=== PATIENT | male | born 1950 | race Caucasian/White ===

== ENCOUNTER 2016-06-28 07:32 | Emergency (ER) | payer OTHER ==
[2016-06-28 07:39] VITALS: BP 154/93; TEMP 96.9; BMI 31.4
[2016-06-28 08:08] LABS: BILIRUBIN,URINE Negative (NEGATIVE); KETONES,URINE Negative (NEGATIVE); LEUKOCYTE ESTERASE ,URINE Negative (NEGATIVE); NITRITE,URINE Negative (NEGATIVE); PROTEIN,URINE Negative (NEGATIVE); URINE, BLOOD Negative (NEGATIVE)
[2016-06-28 08:27] LABS: BASOPHILS # (AUTO) 0.1 K/uL (0-0.2); EOSINOPHILS # (AUTO) 0.2 K/ul (0.0-0.7); EOSINOPHILS % (AUTO) 4.3 % (0.0-7.0); HEMOGLOBIN 16.9 g/dl (14.0-18.0); IMMATURE GRANULOCYTE % (AUTO) 0.2 % (0.0-5.0); LYMPHOCYTES # (AUTO) 1.9 K/uL (0.60-3.4); LYMPHOCYTES % (AUTO) 38.7 (10.0-50.0); MEAN CORPUSCULAR HEMOGLOBIN 29.8 pg (27.0-31.0); MEAN CORPUSCULAR HGB CONC 32.5 (31.8-35.4); MEAN CORPUSCULAR VOLUME 91.5 fl (80.0-94.0); MONOCYTES # (AUTO) 0.7 K/uL (0.4-2.0); NEUTROPHILS % (AUTO) 41.8; PLATELET COUNT 210 10^3/uL (140-440); RED BLOOD COUNT 5.68 10^6/ul (4.70-6.10); WHITE BLOOD COUNT 4.86 K/ul (4.2-10.2)
[2016-06-28 08:32] LABS: ADD URINE MICROSCOPIC NO
--- NOTE | 2016-06-28 08:32 | CT ---
EXAM: CT of the lumbar spine without contrast History: Lower back pain and diskitis. Comparison: CT lumbar spine 02/07/2015 Technique: Multiplanar CT images through the lumbar spine were obtained without the administration of IV contrast Findings: Atherosclerotic vascular calcifications. Small hiatal hernia. Left renal cyst again not ed. No acute fracture or subluxation. No change in the multilevel degenerative disc space narrowing wit h endplate sclerosis, osteophyte formation and scattered endplate cysts. Degenerative disc disease is most significant and moderate to severe at L5-S1, T12-L1 and L1-L2. T12-L1: The bony spinal canal is not compromised and there is no significant bony neural foraminal narrowing. L1-L2: Bony spinal canal is not compromised and there is moderate left mild right bony neural erick inal narrowing secondary to ligamentous and facet hypertrophy. L2-L3: Small disc bulge effacing the anterior thecal sac with no significant bony central canal jatinder nosis. Mild to moderate bilateral bony neural foraminal narrowing. L3-L4: Small disc bulge with no significant bony central canal stenosis. Moderate bilateral bony n eural foraminal narrowing secondary to ligamentous and facet hypertrophy. L4-L5: No significant disc bulge or bony central canal stenosis. Moderate to severe right and mild to moderate left bony neural foraminal narrowing secondary to ligamentous and facet hypertrophy. L5-S1: Small disc bulge with no significant bony central canal stenosis. Severe right and mild lef t bony neural foraminal narrowing secondary to ligamentous and facet hypertrophy. Findings have not significantly changed compared to the prior study Impression: 1. No acute osseous abnormality of the lumbar spine. 2. Degenerative changes with level by level analysis as detailed above. 3. CT is insensitive for the detection of diskitis. If there remains concern for diskitis an MRI o f the lumbar spine would be a better examination to evaluate.
[2016-06-28 08:44] LABS: ALBUMIN 3.6 g/dL (3.4-5.0); ALBUMIN/GLOBULIN RATIO 1.03; BILIRUBIN,TOTAL 0.68 mg/dL (0.00-1.20); BUN/CREATININE RATIO 11.25; CALCIUM 9.3 mg/dL (8.2-10.2); CREATININE 0.8 mg/dL (0.60-1.10); TOTAL PROTEIN 7.1 g/dL (5.8-8.1)
--- NOTE | 2016-06-28 08:46 | ED.PDOC ---
General ED Provider: Dr. DILLAN SCANLON Chief Complaint: Back Pain Stated Complaint: Patient reports a 3 day history of lower back pain in area of previous surgery. He has been taking Asprin only. He states he had a UTI 4 months ago for which he was treated and now has no symtoms. Time Seen by Physician: 08:00 Mode of Arrival: Walk-In Information Source: Patient Exam Limitations: No limitations Primary Care Provider: LUKAS STARR Nursing and Triage Documentation Reviewed and Agree: Yes Musculoskeletal Complaint Exam - Back Pain Complaint/Exam Mechanism of Injury: Reports: No known trauma Onset/Duration: 3 days Symptoms Are: Still present Timing: Constant Initial Severity: Severe Current Severity: Moderate Location: Reports: Discrete (Lower back ) Character: Reports: Aching, Throbbing Aggravating: Reports: Movements, Bending, Walking Alleviating: Reports: Rest, Position Associated Signs and Symptoms: Reports: Tingling, Pain with weight bearing. Denies: Weight loss Related History: Reports: Similar episode TAD Risk Factors: Reports: None AAA Risk Factors: Reports: None Cauda Equina Risk Factors: Reports: None Epidural Abcess Risk Factors: Denies: Fever, IV drug use, Recent dental procedure, Lower extremity numbness, Lower extremity weakness Related Surgical History: Reports: Back Surgery Focal Tenderness: Yes Paraspinal Muscle Tenderness: Yes Paraspinal Muscle Spasm: No Scoliosis: No Lordosis: No Kyphosis: No SLR Test: Right Negative, Left Negative Hip Motion Testing Pain: Right Negative, Left Negative Focal Weakness: Present: None Focal Sensory Loss: Present: None Gait: Present: Normal Back Picture: 1 - tenderness to palpation. Differential Diagnoses: Herniated Disk, Strain, Sprain Review of Systems - Review Of Systems Constitutional: Reports: No symptoms Eyes: Reports: No symptoms Ears, Nose, Mouth, Throat: Reports: No symptoms Respiratory: Reports: No symptoms Cardiac: Reports: No symptoms GI: Reports: No symptoms : Reports: No symptoms Musculoskeletal: Reports: Back pain Skin: Reports: No symptoms Neurological: Reports: No symptoms Endocrine: Reports: No symptoms Hematologic/Lymphatic: Reports: No symptoms All Other Systems: Reviewed and Negative Past Medical History - Past Medical History Previously Healthy: No Endocrine: Reports: None Cardiovascular: Reports: None Respiratory: Reports: COPD Hematological: Reports: None Gastrointestinal: Reports: None Genitourinary: Reports: UTI, Other Neuro/Psych: Reports: Other (spinal stenosis) Musculoskeletal: Reports: Arthritis, Back Pain Cancer: Reports: None Other Pertinent Past Medical History: urinary retention/uti,Back, Left Knee, Hernia Repair - Surgical History General Surgical History: Reports: Orthopedic (Back, Left Knee), Other (Hernia Repair) - Family History Family History: Reports: Unknown - Social History Smoking Status: Current some day smoker, Light tobacco smoker Hx Substance Use: No Alcohol Screening: None - Immunizations Tetanus Shot up to Date: No Physical Exam - Physical Exam Appearance: Ill-appearing Ill-appearing: Mild Pain Distress: Moderate Neck: Supple Respiratory: Airway patent, Breath sounds clear, Breath sounds equal, Respirations nonlabored Cardiovascular: RRR, Pulses normal, No rub, No murmur GI/: Soft, Nontender, No masses, Bowel sounds normal, No Organomegaly Musculoskeletal: Limited ROM (of lower back. ) Skin: Warm, Dry, Normal color Psychiatric: Anxious Interpretation - Radiology Interpretation Radiology Interpretation By: Radiologist Radiology Results: Negative Exam Interpreted: CT Scan (No Acute fracture no abscess. ) Critical Care Note - Critical Care Note Total Time (mins): 0 Course - Course Hematology/Chemistry: 06/28/16 08:20 06/28/16 08:20 Orders, Labs, Meds: Lab Review 06/28/16 06/28/16 07:53 08:20 WBC 4.86 RBC 5.68 Hgb 16.9 Hct 52.0 MCV 91.5 MCH 29.8 MCHC 32.5 RDW Coeff of Jessie 13.5 Plt Count 210 Immature Gran % (Auto) 0.2 Neut % (Auto) 41.8 Lymph % (Auto) 38.7 [place] % (Auto) 14.0 H Eos % (Auto) 4.3 Baso % (Auto) 1.0 Immature Gran # (Auto) 0.0 Neut # 2.0 Lymph # 1.9 Estill # 0.7 Eos # 0.2 Baso # 0.1 ESR Pending Sodium 144 Potassium 4.0 Chloride 106 Carbon Dioxide 26 Anion Gap 16.0 BUN 9 Creatinine 0.80 Estimated GFR (MDRD) 96.00 BUN/Creatinine Ratio 11.25 Glucose 94 Calcium 9.3 Total Bilirubin 0.68 AST 22 ALT 14 Alkaline Phosphatase 102 Total Protein 7.1 Albumin 3.6 Globulin 3.5 Albumin/Globulin Ratio 1.03 Urine Color Yellow Urine Clarity Clear Urine pH 7.0 Ur Specific Rudyard 1.020 Urine Protein Negative Urine Glucose (UA) Negative Urine Ketones Negative Urine Blood Negative Urine Nitrite Negative Urine Bilirubin Negative Urine Urobilinogen 1.0 Ur Leukocyte Esterase Negative Orders Category Date Time Status CBC W/ AUTO DIFF Stat LAB 06/28/16 08:20 Results CMP [COMPREHENSIVE METABOLIC PANEL] Stat LAB 06/28/16 08:20 Completed ESR Stat LAB 06/28/16 08:20 Results URINALYSIS C & S IF INDICATED Stat LAB 06/28/16 07:[address] LUMBAR SPINE W/O CONTRAST Stat RADS 06/28/16 07:56 Completed Vital Signs: Temp Pulse Resp BP Pulse Ox 06/28/16 07:33 96.9 F L 84 16 154/93 H 95 Departure - Departure Time of Disposition: 09:27 Disposition: HOME SELF-CARE Discharge Problem: Backache Instructions: Back Pain (ED) Condition: Fair Pt referred to PMD for follow-up: Yes Additional Instructions: If you take Ibuprofen do not take Aspirin that day Take Tramdol as needed for severe pain. Follow up with PCP return if worse. Prescriptions: Ibuprofen 600 mg PO TID PRN #20 tablet PRN Reason: pain Tramadol HCl [Ultram] 50 mg PO Q8H PRN #10 tablet PRN Reason: Severe Pain Allergies/Adverse Reactions: Allergies Penicillins Adverse Reaction (Verified 06/28/16 07:41) Home Medications: Ambulatory Orders Aspirin [Neida Advanced] 500 mg PO PRN 05/22/16 Ibuprofen 600 mg PO TID PRN #20 tablet 06/28/16 Tramadol HCl [Ultram] 50 mg PO Q8H PRN #10 tablet 06/28/16 Disposition Discussed With: Patient
[2016-06-28 09:16] LABS: ERYTHROCYTE SEDIMENTATION RATE 9 mm/hr (0-15); ESR INTERNAL QC INTERNAL QC VALID
[2016-06-28] MEDS ORDERED: TORADOL IM STA (09:16)
== END 2016-06-28 09:43 | disposition home or self-care (01) ==
LOC: ED 07:32
DX: M54.5 Low back pain (principal); F17.210 Nicotine dependence, cigarettes, uncomplicated; Z87.440 Personal history of urinary (tract) infections; Z79.899 Other long term (current) drug therapy
CPT/HCPCS: 36415; 80053; 81001; 85025; 85651; 96372; 99282; 99283

== ENCOUNTER 2016-06-28 16:20 | Outpatient (CLI) ==
[2012-11-30 13:15] VITALS: TEMP 99.2
[2016-06-28 07:39] VITALS: BMI 31.4
== END 2016-06-28 16:21 | disposition home or self-care (01) ==
LOC: AMBL 16:20
PROVIDERS: ATTEND Internal Medicine Geriatric Medicine
DX: R42 Dizziness and giddiness (principal); R61 Generalized hyperhidrosis

== ENCOUNTER 2016-08-28 08:56 | Emergency (ER) | payer OTHER ==
[2016-08-28 09:01] VITALS: BP 153/81; TEMP 96.8; BMI 27.1
--- NOTE | 2016-08-28 09:35 | ED.PDOC ---
General ED Provider: Dr. AUDI RODRIGUEZ JR Chief Complaint: Respiratory Complaint Stated Complaint: patient c/o coughing and sneezing. c/o nasal congestion.[ End ]STATES HE HAS BEEN ABLE TO BREATHE BETTER FOR THE LAST 5 DAYS SINCE HE QUIT SMOKING[ End ]96.8 77 16 96% 153/81 03/17 states depressed that he is unable to get help locally, thinking of moving to [place] to be near brother and sister , discussed follow up has missed pain management this month was unhappy with not getting potassium from PMD "it made me feel better" Time Seen by Physician: 09:34 Mode of Arrival: Walk-In Information Source: Patient Exam Limitations: No limitations Primary Care Provider: JOIE SORTO Nursing and Triage Documentation Reviewed and Agree: No Review of Systems - Review Of Systems Constitutional: Reports: Chills, Malaise Eyes: Reports: No symptoms Ears, Nose, Mouth, Throat: Reports: Nose discharge (SNEEZING) Respiratory: Reports: Cough Cardiac: Reports: No symptoms GI: Reports: No symptoms : Reports: No symptoms Musculoskeletal: Reports: Back pain, Muscle pain Skin: Reports: No symptoms Neurological: Reports: No symptoms Endocrine: Reports: No symptoms Hematologic/Lymphatic: Reports: No symptoms All Other Systems: Other Past Medical History - Past Medical History Previously Healthy: No Endocrine: Reports: None Cardiovascular: Reports: None, CHF Respiratory: Reports: COPD Hematological: Reports: None Gastrointestinal: Reports: None Genitourinary: Reports: UTI, Other (urinary retention) Neuro/Psych: Reports: Other (spinal stenosis) Musculoskeletal: Reports: Arthritis, Back Pain Cancer: Reports: None - Surgical History General Surgical History: Reports: Orthopedic (Back, Left Knee), Hernia Repair, Other (Hernia Repair) - Family History Family History: Reports: Unknown - Social History Smoking Status: Current some day smoker, Light tobacco smoker Hx Substance Use: No Alcohol Screening: None Physical Exam - Physical Exam Appearance: Well-appearing Ill-appearing: Mild Pain Distress: Mild Eyes: ERNESTO, EOMI, Conjunctiva clear ENT: Ears normal, Nose normal, Oropharynx normal Neck: Supple Respiratory: Airway patent, Breath sounds clear, Breath sounds equal, Respirations nonlabored Cardiovascular: RRR, Pulses normal, No rub, No murmur GI/: Soft, Nontender, No masses, Bowel sounds normal, No Organomegaly Musculoskeletal: Normal strength, ROM intact, No edema, No calf tenderness Skin: Warm, Dry, Normal color Neurological: Sensation intact, Motor intact, Reflexes intact, Cranial nerves intact, Alert, Oriented Psychiatric: Affect appropriate, Mood appropriate Critical Care Note - Critical Care Note Total Time (mins): 0 Course - Course Vital Signs: Temp Pulse Resp BP Pulse Ox 08/28/16 08:57 96.8 F L 77 16 153/81 H 96 Departure - Departure Time of Disposition: 09:59 Disposition: HOME SELF-CARE Discharge Problem: Rhinitis, Back pain Instructions: Allergic Rhinitis (ED), Chronic Back Pain (ED) Condition: Fair Pt referred to PMD for follow-up: Yes Additional Instructions: may begin medrol dose pack recommend antihistamine decongestant every day for 5-7 days(such as claritin D) follow up with main management for back pain follow up with PMD for history of hypokalemia recheck potassium 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 may call [facility] for referral Prescriptions: Loratadine/Pseudoephedrine [Claritin-D 12 Hour Tablet] 1 each PO BID PRN #60 tab.er.12h PRN Reason: Allergy Symptoms Methylprednisolone [Medrol Dosepak] 4 mg PO DIRECTED #1 pkg Potassium Chloride [K-Dur] 20 meq PO DAILY #14 tab Allergies/Adverse Reactions: Allergies Penicillins Adverse Reaction (Verified 08/28/16 09:01) Home Medications: Ambulatory Orders Aspirin [Neida Advanced] 500 mg PO PRN 05/22/16 Ibuprofen 600 mg PO TID PRN #20 tablet 06/28/16 Tramadol HCl [Ultram] 50 mg PO Q8H PRN #10 tablet 06/28/16 Loratadine/Pseudoephedrine [Claritin-D 12 Hour Tablet] 1 each PO BID PRN #60 tab.er.12h 08/28/16 Methylprednisolone [Medrol Dosepak] 4 mg PO DIRECTED #1 pkg 08/28/16 Potassium Chloride [K-Dur] 20 meq PO DAILY #14 tab 08/28/16
== END 2016-08-28 10:35 | disposition home or self-care (01) ==
LOC: ED 08:56
DX: J30.9 Allergic rhinitis, unspecified (principal); M54.9 Dorsalgia, unspecified; G89.29 Other chronic pain; E87.6 Hypokalemia; Z79.899 Other long term (current) drug therapy
CPT/HCPCS: 99283

== ENCOUNTER 2016-09-18 14:57 | Emergency (ER) | payer OTHER ==
[2016-09-18 15:08] VITALS: BP 104/70; TEMP 98.5; BMI 25.4
--- NOTE | 2016-09-18 15:22 | ED.PDOC ---
General ED Provider: Dr. FLAVIO FAULKNER Chief Complaint: Back Pain Stated Complaint: low back pain Time Seen by Physician: 15:00 (negatibe injury) Mode of Arrival: Walk-In Information Source: Patient Exam Limitations: No limitations Primary Care Provider: JOIE SORTO Nursing and Triage Documentation Reviewed and Agree: Yes Musculoskeletal Complaint Exam - Back Pain Complaint/Exam Mechanism of Injury: Reports: No known trauma Onset/Duration: 1 day Symptoms Are: Still present Timing: Constant Episodes Lasting: Hours Initial Severity: Moderate Current Severity: Moderate Location: Reports: Discrete Character: Reports: Aching Aggravating: Reports: None Alleviating: Reports: None Associated Signs and Symptoms: Denies: Swelling, Redness, Bruising, Fever, Weakness, Numbness, Tingling, Abdominal pain, Flank pain, Bladder incontinence, Bowel incontinence, Weight loss, Pain with weight bearing Related History: Reports: Similar episode TAD Risk Factors: Reports: None AAA Risk Factors: Reports: None Cauda Equina Risk Factors: Reports: None Epidural Abcess Risk Factors: Reports: None Focal Tenderness: No Paraspinal Muscle Tenderness: No Paraspinal Muscle Spasm: No Scoliosis: No Lordosis: No Kyphosis: No SLR Test: Right Negative, Left Negative Hip Motion Testing Pain: Right Negative, Left Negative Focal Weakness: Present: None Focal Sensory Loss: Present: None Differential Diagnoses: Strain, Sprain Review of Systems - Review Of Systems Constitutional: Reports: No symptoms Eyes: Reports: No symptoms Ears, Nose, Mouth, Throat: Reports: No symptoms Respiratory: Reports: No symptoms Cardiac: Reports: No symptoms GI: Reports: No symptoms : Reports: No symptoms Musculoskeletal: Reports: Back pain Skin: Reports: No symptoms Neurological: Reports: No symptoms Endocrine: Reports: No symptoms Hematologic/Lymphatic: Reports: No symptoms All Other Systems: Reviewed and Negative Past Medical History - Past Medical History Previously Healthy: No Endocrine: Reports: None Cardiovascular: Reports: None, CHF Respiratory: Reports: COPD Hematological: Reports: None Gastrointestinal: Reports: None Genitourinary: Reports: UTI, Other (urinary retention) Neuro/Psych: Reports: Other (spinal stenosis) Musculoskeletal: Reports: Arthritis, Back Pain Cancer: Reports: None Other Pertinent Past Medical History: /uti,Back, Left Knee, Hernia Repair - Surgical History General Surgical History: Reports: Orthopedic (Back, Left Knee), Hernia Repair, Other (Hernia Repair) - Family History Family History: Reports: Unknown - Social History Smoking Status: Current some day smoker, Light tobacco smoker Hx Substance Use: No Alcohol Screening: None Physical Exam - Physical Exam Appearance: Well-appearing, No pain distress, Well-nourished Eyes: ERNESTO, EOMI, Conjunctiva clear ENT: Ears normal, Nose normal, Oropharynx normal Respiratory: Airway patent, Breath sounds clear, Breath sounds equal, Respirations nonlabored Cardiovascular: RRR, Pulses normal, No rub, No murmur GI/: Soft, Nontender, No masses, Bowel sounds normal, No Organomegaly Musculoskeletal: Normal strength, ROM intact, No edema, No calf tenderness Skin: Warm, Dry, Normal color Neurological: Sensation intact, Motor intact, Reflexes intact, Cranial nerves intact, Alert, Oriented Psychiatric: Affect appropriate, Mood appropriate Critical Care Note - Critical Care Note Total Time (mins): 0 Course - Course Vital Signs: Temp Pulse Resp BP Pulse Ox 09/18/16 14:58 98.5 F 94 H 20 104/70 94 L Departure - Departure Time of Disposition: 15:21 Disposition: HOME SELF-CARE Discharge Problem: Backache Low back pain Qualifiers: Chronicity: unspecified Instructions: Acute Low Back Pain (ED), Chronic Back Pain (ED) Condition: Good Pt referred to PMD for follow-up: No Additional Instructions: Please call your Family Physician as soon as possible to schedule a follow-up appointment. Prescriptions: Nabumetone [Relafen] 750 mg PO BIDWM #10 tablet Allergies/Adverse Reactions: Allergies Penicillins Adverse Reaction (Verified 08/28/16 09:01) Home Medications: Ambulatory Orders Aspirin [Neida Advanced] 500 mg PO PRN 05/22/16 Ibuprofen 600 mg PO TID PRN #20 tablet 06/28/16 Loratadine/Pseudoephedrine [Claritin-D 12 Hour Tablet] 1 each PO BID PRN #60 tab.er.12h 08/28/16 Potassium Chloride [K-Dur] 20 meq PO DAILY #14 tab 08/28/16 Nabumetone [Relafen] 750 mg PO BIDWM #10 tablet 09/18/16
== END 2016-09-18 15:38 | disposition home or self-care (01) ==
LOC: ED 14:57
DX: M54.5 Low back pain (principal); F17.210 Nicotine dependence, cigarettes, uncomplicated
CPT/HCPCS: 99282

== ENCOUNTER 2016-11-07 13:52 | Emergency (ER) ==
[2016-11-07 14:00] VITALS: BP 168/90; TEMP 98.1; BMI 26.7
[2016-11-07 14:37] LABS: BASOPHILS # (AUTO) 0.1 K/uL (0-0.2); EOSINOPHILS # (AUTO) 0.1 K/ul (0.0-0.7); EOSINOPHILS % (AUTO) 1.6 % (0.0-7.0); HEMATOCRIT 50.9 % (42.0-52.0); HEMOGLOBIN 17.4 g/dl (14.0-18.0); IMMATURE GRANULOCYTE % (AUTO) 0.3 % (0.0-5.0); LYMPHOCYTES # (AUTO) 2.1 K/uL (0.60-3.4); MEAN CORPUSCULAR HEMOGLOBIN 31.1 pg (27.0-31.0); MEAN CORPUSCULAR HGB CONC 34.2 (31.8-35.4); MEAN CORPUSCULAR VOLUME 90.9 fl (80.0-94.0); MONOCYTES # (AUTO) 0.9 K/uL (0.4-2.0); MONOCYTES % (AUTO) 13.1 (0-10); NEUTROPHILS # (AUTO) 3.6 K/ul (2.0-6.9); PLATELET COUNT 243 10^3/uL (140-440); WHITE BLOOD COUNT 6.72 K/ul (4.2-10.2)
[2016-11-07 15:03] LABS: AMYLASE 54 U/L (25-115); LIPASE 26 U/L (8-78)
--- NOTE | 2016-11-07 15:05 | DI ---
EXAM: PA and lateral views of the chest HISTORY: Pain COMPARISON: 03/18/2016 chest x-ray, 03/25/2016 CT, 03/26/2015 chest x-ray FINDINGS: The lungs are hyperexpanded. Left basilar opacities are again seen and similar compared to prior exa ms. No definite new focal consolidation is identified. No pneumothorax or pleural effusion is seen. There is similar borderline enlarged of the cardiac silhouette. There is calcified atherosclerotic plaque of the aorta. IMPRESSION: Similar left basilar opacities, likely secondary to fibrosis. Superimposed mild atelectasis and/or c onsolidation would be difficult to completely exclude. Hyperexpanded lungs.
[2016-11-07 15:11] LABS: ALANINE AMINOTRANSFERASE 19 U/L (12-78); ALBUMIN 3.7 g/dL (3.4-5.0); ALBUMIN/GLOBULIN RATIO 1.19; ALKALINE PHOSPHATASE 77 U/L (56-119); ANION GAP 13.5; ASPARTATE AMINO TRANSFERASE 50 U/L (15-37); BILIRUBIN,TOTAL 0.83 mg/dL (0.00-1.20); BLOOD UREA NITROGEN 8 mg/dL (7-18); BUN/CREATININE RATIO 10.95; CARBON DIOXIDE 26 mmol/L (23-31); CHLORIDE 106 mmol/L (98-107); CREATINE KINASE 62 U/L; CREATININE 0.73 mg/dL (0.60-1.10); GLUCOSE 102 mg/dL (82-115); POTASSIUM 3.5 mmol/L (3.5-5.1); SODIUM 142 mmol/L (136-145); TOTAL PROTEIN 6.8 g/dL (5.8-8.1)
--- NOTE | 2016-11-07 15:31 | CT ---
EXAM: CT Abdomen without contrast. CT Pelvis without contrast. HISTORY: Epigastric pain. COMPARISON: 03/25/2016. TECHNIQUE: Multiple axial images of the abdomen and pelvis were obtained without intravenous contra st. Images were reformatted in the coronal plane. FINDINGS: Please note that evaluation of the abdominal and pelvic structures is limited due to lack of intravenous contrast. Left greater than right basilar bronchiectasis again noted along with small nodular densities in the posterior lower lobes bilaterally which appear stable. Degenerative changes present in the spine and hips. Calcified stones seen in the gallbladder. The liver, pancreas, spleen, and adrenal glands demonstra te normal contour. No calcified renal stones or hydronephrosis identified. Left renal cysts noted. There is mild fluid distension of the stomach which is nonspecific. Gastric lipoma again noted on a xial image 16 Duodenal diverticuli are present. The bowel is normal in course and caliber without e vidence for obstruction or inflammatory process. Colonic diverticulosis noted. Probable appendicol ith and otherwise normal appearing appendix. Fat-containing right inguinal hernia noted. Multiple urinary bladder diverticula present. Prostate gland is enlarged. No free fluid or free ai r identified. Small fat-containing umbilical hernia is present. Atherosclerotic calcifications not ed. IMPRESSION: 1. No acute abnormality in the abdomen or pelvis. 2. Cholelithiasis. 3. Diverticulosis. 4. Bladder diverticuli likely due to chronic cystitis/outlet obstruction from prostatic enlargement .
--- NOTE | 2016-11-07 15:36 | ED.PDOC ---
General ED Provider: Dr. FLAVIO FAULKNER Chief Complaint: Chest Pain Stated Complaint: ABDOMINAL PAIN Time Seen by Physician: 14:00 (SEEN WIT NURSING STAFF ) Information Source: Patient Exam Limitations: No limitations Primary Care Provider: JOIE SORTO Nursing and Triage Documentation Reviewed and Agree: Yes GI Complaint Exam - Abdominal Pain Complaint/Exam Onset: Gradual Duration: 2 WEEKS Symptoms Are: Resolved Timing: Intermittent Initial Severity: Moderate Current Severity: None Location of Pain: Epigastric Character: Reports: Aching, Burning Aggravating: Reports: Food Alleviating: Reports: Spontaneous resolution Associated Signs and Symptoms: Denies: Diaphoresis, Fever, Cough, Chest pain, Dizziness, Back pain, Constipation, Blood in stool, Dysuria, Urinary frequency, Decreased urine output, Decreased appetite, Discharge, Nausea, Vomiting, Diarrhea, Decreased activity Related History: Reports: Similar episode Review of Systems - Review Of Systems Constitutional: Reports: No symptoms Eyes: Reports: No symptoms Ears, Nose, Mouth, Throat: Reports: No symptoms Respiratory: Reports: No symptoms Cardiac: Reports: No symptoms GI: Reports: Abdominal pain : Reports: No symptoms Musculoskeletal: Reports: No symptoms Skin: Reports: No symptoms Neurological: Reports: No symptoms Endocrine: Reports: No symptoms Hematologic/Lymphatic: Reports: No symptoms All Other Systems: Reviewed and Negative Past Medical History - Past Medical History Previously Healthy: No Endocrine: Reports: None Cardiovascular: Reports: None, CHF Respiratory: Reports: COPD Hematological: Reports: None Gastrointestinal: Reports: None Genitourinary: Reports: UTI, Other (urinary retention) Neuro/Psych: Reports: Other (spinal stenosis) Musculoskeletal: Reports: Arthritis, Back Pain Cancer: Reports: None Other Pertinent Past Medical History: /uti,Back, Left Knee, Hernia Repair - Surgical History General Surgical History: Reports: Orthopedic (Back, Left Knee), Hernia Repair, Other (Hernia Repair) - Family History Family History: Reports: Unknown - Social History Smoking Status: Current some day smoker, Light tobacco smoker Hx Substance Use: No Alcohol Screening: None Physical Exam - Physical Exam Appearance: Well-appearing, No pain distress, Well-nourished Eyes: ERNESTO, EOMI, Conjunctiva clear ENT: Ears normal, Nose normal, Oropharynx normal Respiratory: Airway patent, Breath sounds clear, Breath sounds equal, Respirations nonlabored Cardiovascular: RRR, Pulses normal, No rub, No murmur GI/: Soft, Nontender, No masses, Bowel sounds normal, No Organomegaly Musculoskeletal: Normal strength, ROM intact, No edema, No calf tenderness Skin: Warm, Dry, Normal color Neurological: Sensation intact, Motor intact, Reflexes intact, Cranial nerves intact, Alert, Oriented Psychiatric: Affect appropriate, Mood appropriate Interpretation - Radiology Interpretation Radiology Interpretation By: Radiologist Radiology Results: No acute changes Critical Care Note - Critical Care Note Total Time (mins): 0 Course - Course Hematology/Chemistry: 11/07/16 14:30 11/07/16 14:30 Orders, Labs, Meds: Lab Review 11/07/16 14:30 WBC 6.72 RBC 5.60 Hgb 17.4 Hct 50.9 MCV 90.9 MCH 31.1 H MCHC 34.2 RDW Coeff of Jessie 13.3 Plt Count 243 Immature Gran % (Auto) 0.3 Neut % (Auto) 53.0 Lymph % (Auto) 31.0 [place] % (Auto) 13.1 H Eos % (Auto) 1.6 Baso % (Auto) 1.0 Immature Gran # (Auto) 0.0 Neut # 3.6 Lymph # 2.1 [place] # 0.9 Eos # 0.1 Baso # 0.1 Sodium 142 Potassium 3.5 Chloride 106 Carbon Dioxide 26 Anion Gap 13.5 BUN 8 Creatinine 0.73 Estimated GFR (MDRD) 107.00 BUN/Creatinine Ratio 10.95 Glucose 102 Calcium 9.0 Total Bilirubin 0.83 AST 50 H ALT 19 Alkaline Phosphatase 77 Total Creatine Kinase 62 Troponin I < 0.0100 Total Protein 6.8 Albumin 3.7 Globulin 3.1 Albumin/Globulin Ratio 1.19 Amylase 54 Lipase 26 Orders Category Date Time Status EKG-(ED ONLY) Stat CARDIO 11/07/16 14:15 Completed AMYLASE Stat LAB 11/07/16 14:30 Completed CBC W/ AUTO DIFF Stat LAB 11/07/16 14:30 Completed COMPREHENSIVE METABOLIC PANEL Stat LAB 11/07/16 14:30 Completed CREATINE KINASE Stat LAB 11/07/16 14:30 Completed LIPASE Stat LAB 11/07/16 14:30 Completed TROPONIN I Stat LAB 11/07/16 14:30 Completed URINALYSIS C & S IF INDICATED Stat LAB 11/07/16 14:16 Uncollected CHEST, 2 VIEWS PA & LAT Stat RADS 11/07/16 14:[address] ABDOMEN/PELVIS WO CONTRAST Stat RADS 11/07/16 14:15 Completed Vital Signs: Temp Pulse Resp BP Pulse Ox 11/07/16 13:54 98.1 F 87 20 168/90 H 97 Departure - Departure Time of Disposition: 15:35 Disposition: HOME SELF-CARE Discharge Problem: Abdominal pain Qualifiers: Abdominal location: epigastric Qualifier Code: (R10.13) Epigastric pain Instructions: Abdominal Pain (ED) Condition: Good Pt referred to PMD for follow-up: No Additional Instructions: Please call your Family Physician as soon as possible to schedule a follow-up appointment. Allergies/Adverse Reactions: Allergies Penicillins Adverse Reaction (Verified 08/28/16 09:01) Home Medications: Ambulatory Orders Aspirin [Neida Advanced] 500 mg PO PRN 05/22/16 Ibuprofen 600 mg PO TID PRN #20 tablet 06/28/16 Loratadine/Pseudoephedrine [Claritin-D 12 Hour Tablet] 1 each PO BID PRN #60 tab.er.12h 08/28/16 Potassium Chloride [K-Dur] 20 meq PO DAILY #14 tab 08/28/16 Nabumetone [Relafen] 750 mg PO BIDWM #10 tablet 09/18/16
== END 2016-11-07 15:43 | disposition home or self-care (01) ==
LOC: ED 13:52
DX: R10.13 Epigastric pain (principal); I50.9 Heart failure, unspecified; J44.9 Chronic obstructive pulmonary disease, unspecified; F17.210 Nicotine dependence, cigarettes, uncomplicated; Z79.899 Other long term (current) drug therapy; Z87.440 Personal history of urinary (tract) infections
CPT/HCPCS: 36415; 80053; 82150; 82550; 83690; 84484; 85025; 93005; 93010; 99283

== ENCOUNTER 2017-03-30 12:22 | Outpatient (CLI) ==
[2012-11-30 13:15] VITALS: TEMP 99.2
[2017-03-30 12:40] LABS: BASOPHILS # (AUTO) 0.1 K/uL (0-0.2); EOSINOPHILS # (AUTO) 0.2 K/ul (0.0-0.7); EOSINOPHILS % (AUTO) 2.6 % (0.0-7.0); HEMATOCRIT 53.5 % (42.0-52.0); HEMOGLOBIN 17.8 g/dl (14.0-18.0); IMMATURE GRANULOCYTE % (AUTO) 0.4 % (0.0-5.0); LYMPHOCYTES # (AUTO) 2.1 K/uL (0.60-3.4); LYMPHOCYTES % (AUTO) 28.6 (10.0-50.0); MEAN CORPUSCULAR HEMOGLOBIN 31.1 pg (27.0-31.0); MEAN CORPUSCULAR HGB CONC 33.3 (31.8-35.4); MEAN CORPUSCULAR VOLUME 93.4 fl (80.0-94.0); MONOCYTES # (AUTO) 0.8 K/uL (0.4-2.0); NEUTROPHILS # (AUTO) 4.1 K/ul (2.0-6.9); NEUTROPHILS % (AUTO) 56.4; PLATELET COUNT 261 10^3/uL (140-440); RED BLOOD COUNT 5.73 10^6/ul (4.70-6.10)
[2017-03-30 13:32] LABS: ALBUMIN 3.5 g/dL (3.4-5.0); ANION GAP 15.1; BILIRUBIN,TOTAL 0.89 mg/dL (0.00-1.20); BUN/CREATININE RATIO 6.66; CALCIUM 9.6 mg/dL (8.2-10.2); CHOL/HDL RATIO 3.5 (4.5-6.4); CREATININE 0.75 mg/dL (0.60-1.10); POTASSIUM 4.1 mmol/L (3.5-5.1)
== END 2017-03-30 12:23 | disposition home or self-care (01) ==
LOC: LAB 12:22
PROVIDERS: ATTEND Emergency Medicine
DX: E03.9 Hypothyroidism, unspecified (principal); N40.0 Benign prostatic hyperplasia without lower urinary tract symptoms; Z12.5 Encounter for screening for malignant neoplasm of prostate
CPT/HCPCS: 36415; 80053; 80061; 84443; 85025

== ENCOUNTER 2017-05-31 06:54 | Emergency (ER) ==
[2017-05-31 07:04] VITALS: BP 123/76; TEMP 99.3; BMI 26.9
--- NOTE | 2017-05-31 07:29 | ED.PDOC ---
General ED Provider: Dr. FLAVIO FAULKNER Chief Complaint: Fever Stated Complaint: cough Time Seen by Physician: 07:00 Mode of Arrival: Walk-In Information Source: Patient Exam Limitations: No limitations Primary Care [facility] Nursing and Triage Documentation Reviewed and Agree: Yes Reviewed sepsis parameters & appropriate labs ordered?: Yes System Inflammatory Response Syndrome: Not Applicable Sepsis Protocol: For patient's 13 years and over: Temp is 96.8 and below OR 101 and greater Pulse >90 BPM Resp >20/minute Acutely Altered Mental Status Are patient's symptoms suggestive of a new infection, such as: -Pneumonia -Skin, Soft Tissue -Endocarditis -UTI -Bone, Joint Infection -Implantable Device -Acute Abdominal Infection -Wound Infection -Meningitis -Blood Stream Catheter Infection -Unknown Respiratory Complaint Exam - Respiratory Complaint/Exam Symptoms Are: Still present Timing: Intermittent Initial Severity: Mild Current Severity: Mild Location: Nose, Throat, Chest Character: Reports: Non-productive cough Aggravating: Reports: None Associated Signs and Symptoms: Reports: URI, Nasal congestion History of Healthcare-Acquired Pneumonia: No Related Surgical History: Reports: None Pulmonary Embolism Risk Factors: None Cardiac Risk Factors: Reports: None Pseudomonas Risk Factors: Reports: None Recent Stress Test: No Recent Echo/LV Function: No Current Antibiotic Use: No Current Asthma Medication Use: No Respiratory Distress: None Inadequate Respiratory Effort: No Dysphagia Present: No Stridor Present: No JVD Present: No Accessory Muscle Use: No Retractions: Not Present Grunting Respirations: No Kussmaul Respirations: No Differential Diagnoses: Pneumonia, Bronchitis Review of Systems - Review Of Systems Constitutional: Reports: No symptoms Eyes: Reports: No symptoms Ears, Nose, Mouth, Throat: Reports: No symptoms Respiratory: Reports: Cough Cardiac: Reports: No symptoms GI: Reports: No symptoms : Reports: No symptoms Musculoskeletal: Reports: No symptoms Skin: Reports: No symptoms Neurological: Reports: No symptoms Endocrine: Reports: No symptoms Hematologic/Lymphatic: Reports: No symptoms All Other Systems: Reviewed and Negative Past Medical History - Past Medical History Previously Healthy: No Endocrine: Reports: None Cardiovascular: Reports: None, CHF Respiratory: Reports: COPD Hematological: Reports: None Gastrointestinal: Reports: None Genitourinary: Reports: UTI, Other (urinary retention) Neuro/Psych: Reports: Other (spinal stenosis) Musculoskeletal: Reports: Arthritis, Back Pain Cancer: Reports: None Other Pertinent Past Medical History: /uti,Back, Left Knee, Hernia Repair - Surgical History General Surgical History: Reports: Orthopedic (Back, Left Knee), Hernia Repair, Other (Hernia Repair) - Family History Family History: Reports: Unknown - Social History Smoking Status: Current some day smoker, Light tobacco smoker Hx Substance Use: No Alcohol Screening: None - Immunizations Tetanus Shot up to Date: No Physical Exam - Physical Exam Appearance: Well-appearing, No pain distress, Well-nourished Eyes: ERNESTO, EOMI, Conjunctiva clear ENT: Ears normal, Nose normal, Oropharynx normal Respiratory: Breath sounds diminished Cardiovascular: RRR, Pulses normal, No rub, No murmur GI/: Soft, Nontender, No masses, Bowel sounds normal, No Organomegaly Musculoskeletal: Normal strength, ROM intact, No edema, No calf tenderness Skin: Warm, Dry, Normal color Neurological: Sensation intact, Motor intact, Reflexes intact, Cranial nerves intact, Alert, Oriented Psychiatric: Affect appropriate, Mood appropriate Critical Care Note - Critical Care Note Total Time (mins): 0 Course - Course Vital Signs: Temp Pulse Resp BP Pulse Ox 05/31/17 06:59 99.3 F 95 H 20 123/76 93 L Departure - Departure Time of Disposition: 07:29 Disposition: HOME SELF-CARE Discharge Problem: Bronchitis Instructions: Acute Bronchitis (ED) Condition: Good Pt referred to PMD for follow-up: Yes Additional Instructions: Please call your Family Physician as soon as possible to schedule a follow-up appointment. Allergies/Adverse Reactions: Allergies tamsulosin HCl [From Flomax] Allergy (Severe, Unverified 05/31/17 07:02) exessive sweating Penicillins Adverse Reaction (Unverified 05/31/17 07:02) Home Medications: Ambulatory Orders Aspirin [Neida Advanced] 500 mg PO PRN 05/22/16 Loratadine/Pseudoephedrine [Claritin-D 12 Hour Tablet] 1 each PO BID PRN #60 tab.er.12h 08/28/16 Potassium Chloride [K-Dur] 20 meq PO DAILY #14 tab 08/28/16 Nabumetone [Relafen] 750 mg PO BIDWM #10 tablet 09/18/16 Vit B Comp/C/Folic/Iron/Vit E [Vitamin B Complex Tablet] 1 each PO d 03/30/17 Disposition Discussed With: Patient, Family
== END 2017-05-31 07:41 | disposition home or self-care (01) ==
LOC: ED 06:54
DX: J20.9 Acute bronchitis, unspecified (principal); F17.210 Nicotine dependence, cigarettes, uncomplicated
CPT/HCPCS: 99282

== ENCOUNTER 2017-06-12 14:23 | Outpatient (CLI) ==
[2012-11-30 13:15] VITALS: TEMP 99.2
== END 2017-06-12 14:24 | disposition home or self-care (01) ==
LOC: LAB 14:23
PROVIDERS: ATTEND Emergency Medicine
DX: M54.9 Dorsalgia, unspecified (principal); G89.29 Other chronic pain; M51.36 Other intervertebral disc degeneration, lumbar region; E03.9 Hypothyroidism, unspecified; N40.0 Benign prostatic hyperplasia without lower urinary tract symptoms; Z12.5 Encounter for screening for malignant neoplasm of prostate
CPT/HCPCS: 36415; 80053; 80061; 84443; 85025

== ENCOUNTER 2017-11-16 14:45 | Outpatient (CLI) | payer OTHER ==
[2012-11-30 13:15] VITALS: TEMP 99.2
--- NOTE | 2017-11-16 15:30 | DI ---
EXAM: Two views of the left hip. History: Left hip pain. Findings: No acute fracture or dislocation. Moderate narrowing of the left hip joint with osteophyt es. Increased acetabular coverage of the left femoral head. Degenerative changes within the lower l umbar spine. Osteopenia. Impression: 1. No acute osseous abnormality. 2. Moderate arthritis of the left hip joint. 3. Increased acetabular coverage of the left femoral head can predispose to femoral acetabular impin gement syndrome.
== END 2017-11-16 14:46 | disposition home or self-care (01) ==
LOC: RAD 14:45
PROVIDERS: ATTEND Emergency Medicine
DX: M25.552 Pain in left hip (principal)

== ENCOUNTER 2017-11-17 12:13 | Outpatient (CLI) | payer OTHER ==
[2012-11-30 13:15] VITALS: TEMP 99.2
== END 2017-11-17 12:14 | disposition home or self-care (01) ==
LOC: RHC-LAB 12:13
PROVIDERS: ATTEND Emergency Medicine
DX: E03.9 Hypothyroidism, unspecified (principal); M54.9 Dorsalgia, unspecified; G89.29 Other chronic pain
CPT/HCPCS: 36415; 80053; 80061; 84443; 85025

== ENCOUNTER 2017-12-01 10:42 | Outpatient (CLI) | payer OTHER ==
[2012-11-30 13:15] VITALS: TEMP 99.2
== END 2017-12-01 10:43 | disposition home or self-care (01) ==
LOC: RHC-LAB 10:42
PROVIDERS: ATTEND Emergency Medicine
DX: E03.9 Hypothyroidism, unspecified (principal)
CPT/HCPCS: 36415; 84443

== ENCOUNTER 2018-01-29 22:00 | Emergency (ER) | payer OTHER ==
[2018-01-29 22:10] VITALS: BP 138/74; TEMP 97.6; BMI 27.1
--- NOTE | 2018-01-29 23:13 | CT ---
EXAM: CT of the chest without contrast. HISTORY: Dyspnea. PROCEDURE: Contiguous axial CT images of the chest without contrast with coronal and sagittal reform ats. FINDINGS: Comparison made with CT chest of 03/25/2016. The heart is enlarged. The thoracic aorta is within normal limits in diameter. There are calcified mediastinal and hilar lymph nodes. There is bi apical scarring. There is minimal right middle lobe and right lower lobe subsegmental atelectasis. T here are left basilar infiltrates and patchy areas of consolidation consistent with pneumonia. There is bulla and bleb formation in the right upper lobe and left lower lobe. There is scarring in the r ight upper lobe. There are degenerative changes in the spine. Impression: Left basilar infiltrates and consolidation consistent with pneumonia. Minimal right middle lobe and right basilar subsegmental atelectasis. Bilateral bulla and bleb formation as described. Cardiomegaly.
--- NOTE | 2018-01-29 23:15 | CT ---
EXAM: CT scan abdomen pelvis without contrast HISTORY: Abdominal pain COMPARISON: CT scan abdomen pelvis 11/07/2016 FINDINGS: Contiguous axial images obtained through the abdomen pelvis without contrast utilizing 3-m m collimation. Sagittal coronal reconstructions were imaged and reviewed. Redemonstrated is bibasila r bronchiectasis left greater than right. Gallstones are seen within the gallbladder. There is a hi atal hernia. The liver pancreas spleen and adrenal glands have normal unenhanced CT appearance. Ther e is left renal cyst. Right kidney unremarkable. Atherosclerotic changes are seen involving the aor ta without aneurysm. Small gastric lipoma is again noted seen on the axial image 21. Duodenal divert iculum noted.. Prostate gland is mildly enlarged. Redemonstrated multiple bladder diverticula. The re is diverticulosis without diverticulitis. Right there is no free fluid inflammatory changes. Ther e is a fat-containing right inguinal hernia. There is also a small umbilical hernia containing fat.. Degenerative changes noted throughout the lumbar spine bilateral hips. IMPRESSION: No acute intra-abdominal findings. Cholelithiasis. Diverticulosis. Stable bladder diverticuli. Prostatic enlargement. Bibasilar bronchiectasis left greater than right.
--- NOTE | 2018-01-29 23:55 | ED.PDOC ---
General ED Provider: Dr. DUKE FAJARDO-ER Chief Complaint: Abdominal Pain Stated Complaint: im swelling up--daphne not been taking my meds--im not taking my thyroid meds Time Seen by Physician: 22:05 Mode of Arrival: Walk-In Information Source: Patient Exam Limitations: No limitations Primary Care Provider: [facility] Nursing and Triage Documentation Reviewed and Agree: Yes Does patient meet sepsis criteria?: No System Inflammatory Response Syndrome: Not Applicable Sepsis Protocol: For patient's 13 years and over: Temp is 96.8 and below OR 101 and greater Pulse >90 BPM Resp >20/minute Acutely Altered Mental Status Are patient's symptoms suggestive of a new infection, such as: -Pneumonia -Skin, Soft Tissue -Endocarditis -UTI -Bone, Joint Infection -Implantable Device -Acute Abdominal Infection -Wound Infection -Meningitis -Blood Stream Catheter Infection -Unknown Cardiovascular Complaint Exam - Chest Pain Complaint/Exam Onset: Gradual Duration: 3 days Symptoms Are: Still present Initial Severity: Mild Current Severity: Mild Location: Reports: Diffuse Pain Radiates: Reports: None Character: Reports: Dull Aggravating: Reports: None Alleviating: Reports: None Associated Signs and Symptoms: Reports: Abdominal pain, Short of air Related Surgical History: Reports: None History of Healthcare-Acquired Pneumonia: Reports: No Pulmonary Embolism Risk Factors: Reports: None Prior Care for this Complaint: No Recent Stress Test: No Recent Echo/LV Function: No JVD Present: No Subcutaneous Emphysema Present: No Diminshed Breath Sounds: No Reproducible Chest Wall Pain: No Bilateral Pulses Present: Yes Unequal Pulses Noted: No Quality Indicator For Non-Traumatic Chest Pain/Syncope: EKG Performed Review of Systems - Review Of Systems Constitutional: Reports: No symptoms Eyes: Reports: No symptoms Ears, Nose, Mouth, Throat: Reports: No symptoms Respiratory: Reports: Short of air Cardiac: Reports: Edema GI: Reports: Abdomen distended, Abdominal pain : Reports: No symptoms Musculoskeletal: Reports: No symptoms Skin: Reports: No symptoms Neurological: Reports: No symptoms Endocrine: Reports: No symptoms Hematologic/Lymphatic: Reports: No symptoms All Other Systems: Reviewed and Negative Past Medical History - Past Medical History Previously Healthy: No Endocrine: Reports: None Cardiovascular: Reports: None, CHF Respiratory: Reports: COPD Hematological: Reports: None Gastrointestinal: Reports: None Genitourinary: Reports: UTI, Other (urinary retention) Neuro/Psych: Reports: Other (spinal stenosis) Musculoskeletal: Reports: Arthritis, Back Pain Cancer: Reports: None Other Pertinent Past Medical History: /uti,Back, Left Knee, Hernia Repair - Surgical History General Surgical History: Reports: Orthopedic (Back, Left Knee), Hernia Repair, Other (Hernia Repair) - Family History Family History: Reports: Unknown - Social History Smoking Status: Current some day smoker, Light tobacco smoker Hx Substance Use: No Alcohol Screening: None - Immunizations Tetanus Shot up to Date: Yes Physical Exam - Physical Exam Appearance: Well-appearing, No pain distress, Well-nourished Eyes: ERNESTO ENT: Ears normal Neck: Supple Respiratory: Airway patent Cardiovascular: RRR GI/: Soft, Nontender, No masses, Bowel sounds normal, No Organomegaly Musculoskeletal: Normal strength Skin: Warm Neurological: Sensation intact, Motor intact, Reflexes intact, Cranial nerves intact, Alert, Oriented Psychiatric: Affect appropriate, Mood appropriate, Anxious Interpretation - Radiology Interpretation Radiology Interpretation By: Radiologist Exam Interpreted: CT Scan - EKG Interpretation Time of EKG #1: 23:55 Rate: Normal Rhythm: Sinus Ectopy: None [place]: NL ST Segment: Normal Interpretation: nsr Critical Care Note - Critical Care Note Total Time (mins): 0 Course - Course Hematology/Chemistry: 01/29/18 22:25 01/29/18 22:25 Orders, Labs, Meds: Lab Review 01/29/18 01/29/18 01/29/18 22:25 22:25 22:25 WBC 7.17 RBC 5.26 Hgb 16.2 Hct 48.7 MCV 92.6 MCH 30.8 MCHC 33.3 RDW Coeff of Jessie 13.8 Plt Count 224 Immature Gran % (Auto) 0.4 Neut % (Auto) 58.8 Lymph % (Auto) 26.2 [place] % (Auto) 10.9 H Eos % (Auto) 2.9 Baso % (Auto) 0.8 Immature Gran # (Auto) 0.0 Neut # (Auto) 4.2 Lymph # (Auto) 1.9 [place] # (Auto) 0.8 Eos # (Auto) 0.2 Baso # (Auto) 0.1 Sodium 145 Potassium 4.0 Chloride 109 H Carbon Dioxide 27 Anion Gap 13.0 BUN 9 Creatinine 0.82 Estimated GFR (MDRD) 93.00 BUN/Creatinine Ratio 10.97 Glucose 112 Calcium 9.0 Total Bilirubin 0.6 AST 30 ALT 13 Alkaline Phosphatase 84 B-Natriuretic Peptide 72 Total Protein 6.1 Albumin 3.3 L Globulin 2.8 Albumin/Globulin Ratio 1.18 Amylase 53 Lipase 49 TSH Urine Color Urine Clarity Urine pH Ur Specific [place] Urine Protein Urine Glucose (UA) Urine Ketones Urine Blood Urine Nitrite Urine Bilirubin Urine Urobilinogen Ur Leukocyte Esterase 01/29/18 01/29/18 22:25 23:30 WBC RBC Hgb Hct MCV MCH MCHC RDW Coeff of Jessie Plt Count Immature Gran % (Auto) Neut % (Auto) Lymph % (Auto) [place] % (Auto) Eos % (Auto) Baso % (Auto) Immature Gran # (Auto) Neut # (Auto) Lymph # (Auto) [place] # (Auto) Eos # (Auto) Baso # (Auto) Sodium Potassium Chloride Carbon Dioxide Anion Gap BUN Creatinine Estimated GFR (MDRD) BUN/Creatinine Ratio Glucose Calcium Total Bilirubin AST ALT Alkaline Phosphatase B-Natriuretic Peptide Total Protein Albumin Globulin Albumin/Globulin Ratio Amylase Lipase TSH 48.765 H Urine Color Yellow Urine Clarity Clear Urine pH 7.0 Ur Specific [place] 1.015 Urine Protein Negative Urine Glucose (UA) Negative Urine Ketones Negative Urine Blood Negative Urine Nitrite Negative Urine Bilirubin Negative Urine Urobilinogen 1.0 Ur Leukocyte Esterase Negative Orders Category Date Time Status EKG-(ED ONLY) Stat CARDIO 01/29/18 22:25 Completed AMYLASE Stat LAB 01/29/18 22:25 Completed B-TYPE NATRIURETIC PEPTIDE Stat LAB 01/29/18 22:25 Completed CBC W/ AUTO DIFF Stat LAB 01/29/18 22:25 Completed COMPREHENSIVE METABOLIC PANEL Stat LAB 01/29/18 22:25 Completed LIPASE Stat LAB 01/29/18 22:25 Completed TSH [THYROID STIMULATING HORMONE] Stat LAB 01/29/18 22:25 Completed URINALYSIS C & S IF INDICATED Stat LAB 01/29/18 23:[address] ABDOMEN/PELVIS WO CONTRAST Stat RADS 01/29/18 22:[address] CHEST W/O CONTRAST Stat RADS 01/29/18 22:25 Completed Vital Signs: Temp Pulse Resp BP Pulse Ox 01/29/18 22:01 97.6 F 73 20 138/74 97 KAROL Risk Score KAROL Risk Score: Risk Score Odds of by 30D 0 0.1 (0.1-0.2) 1 0.3 (0.2-0.3) 2 0.4 (0.3-0.5) 3 0.7 (0.6-0.9) 4 1.2 (1.0-1.5) 5 2.2 (1.9-2.6) 6 3.0 (2.5-3.6) 7 4.8 (3.8-6.1) Departure - Departure Time of Disposition: 23:55 Disposition: AMA Discharge Problem: Abdominal pain, Abnormal CT scan of lung Hypothyroid Qualifiers: Hypothyroidism type: acquired Qualified Code(s): E03.9 - Hypothyroidism, unspecified Instructions: Hypothyroidism (ED) Condition: Stable Pt referred to PMD for follow-up: Yes IPMP verified?: No Additional Instructions: get back on your thyroid meds--f/u with pcp Allergies/Adverse Reactions: Allergies meloxicam [From Mobic] Allergy (Severe, Verified 01/29/18 22:11) Dizzy, skin crawl Patient already told drugstore tamsulosin HCl [From Flomax] Allergy (Severe, Verified 01/29/18 22:11) exessive sweating Penicillins Adverse Reaction (Verified 01/29/18 22:11) Hives Home Medications: Ambulatory Orders Aspirin/Caffeine [Neida Back-Body Caplet] 1 tab PO BID PRN 01/29/18 Disposition Discussed With: Patient, Family
== END 2018-01-29 23:55 | disposition left against medical advice (07) ==
LOC: ED 22:00
DX: R10.9 Unspecified abdominal pain (principal); E03.9 Hypothyroidism, unspecified; R91.8 Other nonspecific abnormal finding of lung field; R06.02 Shortness of breath; F17.210 Nicotine dependence, cigarettes, uncomplicated; Z91.14 Patient's other noncompliance with medication regimen; Z87.440 Personal history of urinary (tract) infections
CPT/HCPCS: 36415; 80053; 81001; 82150; 83690; 83880; 84443; 85025; 93005; 93010; 99283

== ENCOUNTER 2018-04-06 07:55 | Emergency (ER) ==
[2018-04-06 08:02] VITALS: BP 144/79; TEMP 97.5; BMI 25.5
[2018-04-06] MEDS ORDERED: DUONEB NEB STA (08:26)
--- NOTE | 2018-04-06 08:37 | ED.PDOC ---
General ED Provider: Dr. DUKE WERNER Chief Complaint: Respiratory Complaint Stated Complaint: Cough and congestion. This elderly cauc male with CC cough and congestion for several days. Has cough and cold sx--thinks he might have had a gas/Carbon monoxide exposure--due to gas leakat home- gas is now off at his home. State he feels hot at times--sweating at nite--no acute distress noted --able to converse without sob Time Seen by Physician: 08:15 Mode of Arrival: Walk-In Information Source: Patient Exam Limitations: No limitations Primary Care Provider: KARLA BARAKAT Nursing and Triage Documentation Reviewed and Agree: Yes Does patient meet sepsis criteria?: No System Inflammatory Response Syndrome: Not Applicable Sepsis Protocol: For patient's 13 years and over: Temp is 96.8 and below OR 101 and greater Pulse >90 BPM Resp >20/minute Acutely Altered Mental Status Are patient's symptoms suggestive of a new infection, such as: -Pneumonia -Skin, Soft Tissue -Endocarditis -UTI -Bone, Joint Infection -Implantable Device -Acute Abdominal Infection -Wound Infection -Meningitis -Blood Stream Catheter Infection -Unknown Respiratory Complaint Exam - Respiratory Complaint/Exam Symptoms Are: Still present Timing: Constant Initial Severity: Mild Current Severity: None Location: Chest Character: Reports: Non-productive cough Aggravating: Reports: Exertion Alleviating: Reports: None Associated Signs and Symptoms: Reports: Dyspnea Related History: Denies: Similar episode History of Healthcare-Acquired Pneumonia: No Related Surgical History: Reports: None Pulmonary Embolism Risk Factors: None Cardiac Risk Factors: Reports: None Pseudomonas Risk Factors: Reports: None Tuberculosis Risk Factors: Reports: None Status Asthmaticus Risk Factors: Reports: None Home Oxygen Use: No Recent Stress Test: No Recent Echo/LV Function: No Current Antibiotic Use: No Current Asthma Medication Use: Yes Respiratory Distress: None Inadequate Respiratory Effort: No Dysphagia Present: No Stridor Present: No JVD Present: No Accessory Muscle Use: No Retractions: Not Present Diminished Breath Sounds: Yes Grunting Respirations: No Kussmaul Respirations: No Differential Diagnoses: URI Review of Systems - Review Of Systems Constitutional: Reports: No symptoms Eyes: Reports: No symptoms Ears, Nose, Mouth, Throat: Reports: No symptoms Respiratory: Reports: Cough, Wheezing Cardiac: Reports: No symptoms GI: Reports: No symptoms : Reports: No symptoms Musculoskeletal: Reports: No symptoms Skin: Reports: No symptoms Neurological: Reports: No symptoms Endocrine: Reports: No symptoms Hematologic/Lymphatic: Reports: No symptoms All Other Systems: Reviewed and Negative Past Medical History - Past Medical History Previously Healthy: No Endocrine: Reports: None Cardiovascular: Reports: None, CHF Respiratory: Reports: COPD Hematological: Reports: None Gastrointestinal: Reports: None Genitourinary: Reports: UTI, Other (urinary retention) Neuro/Psych: Reports: Other (spinal stenosis) Musculoskeletal: Reports: Arthritis, Back Pain Cancer: Reports: None Other Pertinent Past Medical History: /uti,Back, Left Knee, Hernia Repair - Surgical History General Surgical History: Reports: Orthopedic (Back, Left Knee), Hernia Repair, Other (Hernia Repair) - Family History Family History: Reports: Unknown - Social History Smoking Status: Current some day smoker, Light tobacco smoker Hx Substance Use: No Alcohol Screening: None Physical Exam - Physical Exam Appearance: Well-appearing, No pain distress Ill-appearing: None Pain Distress: None Eyes: ERNESTO, EOMI, Conjunctiva clear ENT: Ears normal, Nose normal, Oropharynx normal Neck: Supple Respiratory: Airway patent, Breath sounds clear, Breath sounds diminished, Respirations nonlabored Cardiovascular: RRR, Pulses normal, No rub, No murmur GI/: Soft, Nontender, No masses, Bowel sounds normal, No Organomegaly Musculoskeletal: Normal strength, ROM intact, No edema, No calf tenderness Skin: Warm, Dry, Normal color, Pale Neurological: Sensation intact, Motor intact Psychiatric: Affect appropriate, Mood appropriate Critical Care Note - Critical Care Note Total Time (mins): 0 Course - Course Hematology/Chemistry: 04/06/18 08:45 04/06/18 08:45 Orders, Labs, Meds: Lab Review 04/06/18 04/06/18 04/06/18 08:40 08:45 08:45 WBC 9.13 RBC 5.46 Hgb 16.6 Hct 48.5 MCV 88.8 MCH 30.4 MCHC 34.2 RDW Coeff of Jessie 12.4 Plt Count 254 Immature Gran % (Auto) 0.2 Neut % (Auto) 68.0 Lymph % (Auto) 17.2 [place] % (Auto) 12.3 H Eos % (Auto) 1.6 Baso % (Auto) 0.7 Immature Gran # (Auto) 0.0 Neut # (Auto) 6.2 Lymph # (Auto) 1.6 [place] # (Auto) 1.1 Eos # (Auto) 0.2 Baso # (Auto) 0.1 Puncture Site R brach O2 Saturation 97.0 ABG pH 7.442 ABG pCO2 39.1 ABG pO2 84.0 L ABG HCO3 26.7 H ABG Total CO2 28 ABG Base Excess 3 H Stephen Test + FiO2 % 21.0 Sodium 137.8 Potassium 4.05 Chloride 102.7 Carbon Dioxide 29.8 Anion Gap 9.35 BUN 6.4 L Creatinine 0.68 Estimated GFR (MDRD) 116.00 BUN/Creatinine Ratio 9.41 Glucose 96.5 Lactic Acid Calcium 9.25 Total Bilirubin 0.85 AST 27.4 ALT 15.7 Alkaline Phosphatase 73.6 Total Protein 7.04 Albumin 4.10 Globulin 2.94 Albumin/Globulin Ratio 1.39 Procalcitonin TSH < 0.015 L Urine Color Urine Clarity Urine pH Ur Specific [place] Urine Protein Urine Glucose (UA) Urine Ketones Urine Blood Urine Nitrite Urine Bilirubin Urine Urobilinogen Ur Leukocyte Esterase Urine Microscopic WBC Ur Squamous Epith Cells Urine Opiates Screen Ur Oxycodone Screen Urine Methadone Screen Ur Propoxyphene Screen Ur Barbiturates Screen U Tricyclic Antidepress Ur Phencyclidine Scrn Ur Amphetamine Screen U Methamphetamines Scrn U Benzodiazepines Scrn Urine Cocaine Screen U Cannabinoids Screen Influ A Molecular Assay Influ B Molecular Assay 04/06/18 04/06/18 04/06/18 09:30 09:30 09:30 WBC RBC Hgb Hct MCV MCH MCHC RDW Coeff of Jessie Plt Count Immature Gran % (Auto) Neut % (Auto) Lymph % (Auto) [place] % (Auto) Eos % (Auto) Baso % (Auto) Immature Gran # (Auto) Neut # (Auto) Lymph # (Auto) [place] # (Auto) Eos # (Auto) Baso # (Auto) Puncture Site O2 Saturation ABG pH ABG pCO2 ABG pO2 ABG HCO3 ABG Total CO2 ABG Base Excess Stephen Test FiO2 % Sodium Potassium Chloride Carbon Dioxide Anion Gap BUN Creatinine Estimated GFR (MDRD) BUN/Creatinine Ratio Glucose Lactic Acid 1.19 Calcium Total Bilirubin AST ALT Alkaline Phosphatase Total Protein Albumin Globulin Albumin/Globulin Ratio Procalcitonin < 0.05 TSH Urine Color Urine Clarity Urine pH Ur Specific [place] Urine Protein Urine Glucose (UA) Urine Ketones Urine Blood Urine Nitrite Urine Bilirubin Urine Urobilinogen Ur Leukocyte Esterase Urine Microscopic WBC Ur Squamous Epith Cells Urine Opiates Screen Negative Ur Oxycodone Screen Negative Urine Methadone Screen Negative Ur Propoxyphene Screen Negative Ur Barbiturates Screen Negative U Tricyclic Antidepress Negative Ur Phencyclidine Scrn Negative Ur Amphetamine Screen Negative U Methamphetamines Scrn Negative U Benzodiazepines Scrn Negative Urine Cocaine Screen Negative U Cannabinoids Screen Negative Influ A Molecular Assay Influ B Molecular Assay 04/06/18 04/06/18 09:30 09:50 WBC RBC Hgb Hct MCV MCH MCHC RDW Coeff of Jessie Plt Count Immature Gran % (Auto) Neut % (Auto) Lymph % (Auto) [place] % (Auto) Eos % (Auto) Baso % (Auto) Immature Gran # (Auto) Neut # (Auto) Lymph # (Auto) [place] # (Auto) Eos # (Auto) Baso # (Auto) Puncture Site O2 Saturation ABG pH ABG pCO2 ABG pO2 ABG HCO3 ABG Total CO2 ABG Base Excess Stephen Test FiO2 % Sodium Potassium Chloride Carbon Dioxide Anion Gap BUN Creatinine Estimated GFR (MDRD) BUN/Creatinine Ratio Glucose Lactic Acid Calcium Total Bilirubin AST ALT Alkaline Phosphatase Total Protein Albumin Globulin Albumin/Globulin Ratio Procalcitonin TSH Urine Color Yellow Urine Clarity Clear Urine pH 7.0 Ur Specific [place] 1.015 Urine Protein 1+ Urine Glucose (UA) Negative Urine Ketones Trace Urine Blood Negative Urine Nitrite Negative Urine Bilirubin Negative Urine Urobilinogen 0.2 Ur Leukocyte Esterase Negative Urine Microscopic WBC 5-10 Ur Squamous Epith Cells 2-5 Urine Opiates Screen Ur Oxycodone Screen Urine Methadone Screen Ur Propoxyphene Screen Ur Barbiturates Screen U Tricyclic Antidepress Ur Phencyclidine Scrn Ur Amphetamine Screen U Methamphetamines Scrn U Benzodiazepines Scrn Urine Cocaine Screen U Cannabinoids Screen Influ A Molecular Assay Negative by naat Influ B Molecular Assay Negative by naat Orders Category Date Time Status ABG DRAW REQUEST Stat CARDIO 04/06/18 08:25 Completed EKG-(ED ONLY) Stat CARDIO 04/06/18 08:20 Completed NEBULIZER TREATMENT Stat CARDIO 04/06/18 08:26 Completed ABG Stat LAB 04/06/18 08:40 Completed BLOOD CULTURE (ED ONLY) Stat LAB 04/06/18 09:15 Ordered CARBOXYHEMOGLOBIN-BLOOD DRAW Stat LAB 04/06/18 08:45 Received CBC W/ AUTO DIFF Stat LAB 04/06/18 08:45 Completed CMP [COMPREHENSIVE METABOLIC PANEL] Stat LAB 04/06/18 08:45 Completed FLU A & B MOLECULAR [FLU A/B MOLECULAR] Stat LAB 04/06/18 09:50 Completed LACTIC ACID Stat LAB 04/06/18 09:30 Completed PROCALCITONIN Stat LAB 04/06/18 09:30 Completed THYROID STIMULATING HORMONE Stat LAB 04/06/18 08:45 Completed UA [URINALYSIS C & S IF INDICATED] Stat LAB 04/06/18 09:30 Completed URINE CULTURE Stat LAB 04/06/18 09:30 Received URINE DRUG SCREEN (RAPID FOR ED) [DRUG SCREEN, URINE, LAB 04/06/18 09:30 Completed RAPID] Stat Ipratropium/Albuterol Neb [Duoneb] MEDS 04/06/18 08:26 Discontinued 1 vial NEB ONCE STA Levofloxacin [Levaquin] MEDS 04/06/18 10:06 Discontinued 500 mg PO ONCE STA CHEST, 1V AP ONLY Stat RADS 04/06/18 08:25 Completed Medications Discontinued Medications Generic Name Dose Route Start Last Admin Trade Name Freq PRN Reason Stop Dose Admin Albuterol/Ipratropium 1 vial 04/06/18 08:26 04/06/18 08:46 Duoneb NEB 04/06/18 08:27 1 vial ONCE STA Administration Levofloxacin 500 mg 04/06/18 10:06 04/06/18 10:13 Levaquin PO 04/06/18 10:07 500 mg ONCE STA Administration Vital Signs: Temp Pulse Resp BP Pulse Ox 04/06/18 07:56 97.5 F L 96 H 20 144/79 H 96 Departure - Departure Time of Disposition: 10:55 Disposition: HOME SELF-CARE Discharge Problem: Pneumonia, COPD (chronic obstructive pulmonary disease), Low TSH level Instructions: Pneumonia (ED), Hyperthyroidism (ED) Condition: Good Pt referred to PMD for follow-up: Yes IPMP verified?: No Additional Instructions: Maintain adequate oral fluids intake Advance diet per tolerance Tylenol for pain or temp above 101 degrees Rest Out of school tomorrow Levaquin as directed Use Proventil/albuterol inhaler as directed Have Thyroid Rechecked by PCP (your TSH was Low) See PCP in 5-8 days as needed for follow up Allergies/Adverse Reactions: Allergies meloxicam [From Mobic] Allergy (Severe, Verified 04/06/18 08:05) Dizzy, skin crawl Patient already told drugstore tamsulosin HCl [From Flomax] Allergy (Severe, Verified 04/06/18 08:05) exessive sweating Penicillins Adverse Reaction (Verified 04/06/18 08:05) Hives Home Medications: Ambulatory Orders Aspirin/Caffeine [Neida Back-Body Caplet] 1 tab PO BID PRN 01/29/18 Tramadol HCl 50 mg PO BEDTIME 04/06/18 Disposition Discussed With: Patient
--- NOTE | 2018-04-06 08:55 | DI ---
EXAM: Chest one view HISTORY: Chronic obstructive pulmonary disease, cough COMPARISON: 11/07/2016 TECHNIQUE: Single view of the chest was performed FINDINGS: Bibasilar infiltrates There is no pleural effusion or pneumothorax. The heart is normal in size. The mediastinal contour is normal. There are no acute abnormalities of the bones. IMPRESSION: Bibasilar infiltrates, suspicious for pneumonia.
[2018-04-06] MEDS ORDERED: LEVAQUIN PO STA (10:06)
== END 2018-04-06 11:20 | disposition home or self-care (01) ==
LOC: ED 07:55
DX: J18.9 Pneumonia, unspecified organism (principal); J44.9 Chronic obstructive pulmonary disease, unspecified; R94.6 Abnormal results of thyroid function studies; F17.210 Nicotine dependence, cigarettes, uncomplicated
CPT/HCPCS: 36415; 80053; 80306; 81001; 82375; 82803; 83605; 84145; 84443; 85025; 87040; 87086; 87502; 93005; 93010; 94640; 99283

== ENCOUNTER 2018-04-07 09:56 | Outpatient (CLI) ==
[2012-11-30 13:15] VITALS: TEMP 99.2
[2018-04-06 08:02] VITALS: BMI 25.5
== END 2018-04-07 09:57 | disposition home or self-care (01) ==
LOC: RHC-LAB 09:56
PROVIDERS: ATTEND Nurse Practitioner Family
DX: E03.9 Hypothyroidism, unspecified (principal); Z13.9 Encounter for screening, unspecified
CPT/HCPCS: 36415; 80061; 84443

== ENCOUNTER 2018-04-26 02:32 | Emergency (ER) | payer OTHER ==
[2018-04-26 02:32] VITALS: BMI 25.5
[2018-04-26] MEDS ORDERED: ZOFRAN 4 MG/2 ML IVP STA (02:37)
[2018-04-26] MEDS ORDERED: SODIUM CHLORIDE 1,000 ML IV STA (02:37)
--- NOTE | 2018-04-26 02:37 | ED.PDOC ---
General ED Provider: Dr. DILLAN SCANLON Chief Complaint: Abdominal Pain Stated Complaint: Patient is a 67 year old male who comes to the ER with complains of diffuse abdominal pain nause and vomiting that started tonight. Time Seen by Physician: 02:36 Mode of Arrival: Ambulance Information Source: Patient, Family Exam Limitations: No limitations Primary Care Provider: AUDI CERON Nursing and Triage Documentation Reviewed and Agree: Yes Does patient meet sepsis criteria?: No If yes, has appropriate treatment been initiated?: Yes System Inflammatory Response Syndrome: Pulse >90 BPM, Resp >20/Minute Sepsis Protocol: For patient's 13 years and over: Temp is 96.8 and below OR 101 and greater Pulse >90 BPM Resp >20/minute Acutely Altered Mental Status Are patient's symptoms suggestive of a new infection, such as: -Pneumonia -Skin, Soft Tissue -Endocarditis -UTI -Bone, Joint Infection -Implantable Device -Acute Abdominal Infection -Wound Infection -Meningitis -Blood Stream Catheter Infection -Unknown Review of Systems - Review Of Systems Constitutional: Reports: No symptoms Eyes: Reports: No symptoms Ears, Nose, Mouth, Throat: Reports: No symptoms Respiratory: Reports: No symptoms Cardiac: Reports: Chest pain GI: Reports: Abdomen distended, Nausea, Poor appetite, Vomiting : Reports: No symptoms Musculoskeletal: Reports: No symptoms Skin: Reports: No symptoms Neurological: Reports: Anxiety Endocrine: Reports: No symptoms Hematologic/Lymphatic: Reports: No symptoms All Other Systems: Reviewed and Negative Past Medical History - Past Medical History Previously Healthy: No Endocrine: Reports: None Cardiovascular: Reports: CHF Respiratory: Reports: COPD Hematological: Reports: None Gastrointestinal: Reports: None Genitourinary: Reports: UTI, Other (urinary retention) Neuro/Psych: Reports: Other (spinal stenosis) Musculoskeletal: Reports: Arthritis, Back Pain Cancer: Reports: None Other Pertinent Past Medical History: /uti,Back, Left Knee, Hernia Repair - Surgical History General Surgical History: Reports: Orthopedic (Back, Left Knee), Hernia Repair, Other (Hernia Repair) - Family History Family History: Reports: Unknown - Social History Smoking Status: Current some day smoker, Light tobacco smoker Hx Substance Use: No Alcohol Screening: None Physical Exam - Physical Exam Appearance: Ill-appearing Ill-appearing: Moderate Pain Distress: Moderate Eyes: ERNESTO, EOMI, Conjunctiva clear Neck: Supple Respiratory: Airway patent, Breath sounds clear, Breath sounds equal, Respirations nonlabored Cardiovascular: No rub, Tachycardia GI/: Soft, Tender (diffusely ) Musculoskeletal: Normal strength, ROM intact, No edema, No calf tenderness Skin: Warm, Dry, Normal color Neurological: Sensation intact, Motor intact, Reflexes intact, Cranial nerves intact, Alert, Oriented Psychiatric: Anxious Interpretation - Radiology Interpretation Radiology Interpretation By: Radiologist Radiology Results: No acute changes Exam Interpreted: CT Scan Re-Evaluation - Re-Evaluation Time of Re-Evaluation: 05:00 Status: Improved Vital Signs Stable: Yes Appearance: NAD Skin: Warm and Dry Critical Care Note - Critical Care Note Total Time (mins): 0 Course - Course Hematology/Chemistry: 04/26/18 02:55 04/26/18 02:55 Orders, Labs, Meds: Lab Review 04/26/18 04/26/18 04/26/18 02:55 02:55 02:55 WBC 9.73 RBC 5.26 Hgb 15.9 Hct 47.1 MCV 89.5 MCH 30.2 MCHC 33.8 RDW Coeff of Jessie 12.7 Plt Count 247 Immature Gran % (Auto) 0.4 Neut % (Auto) 95.5 Lymph % (Auto) 2.5 L [place] % (Auto) 1.3 Eos % (Auto) 0.1 Baso % (Auto) 0.2 Immature Gran # (Auto) 0.0 Neut # (Auto) 9.3 H Lymph # (Auto) 0.2 L [place] # (Auto) 0.1 L Eos # (Auto) 0.0 Baso # (Auto) 0.0 Sodium 141.0 Potassium 3.40 L Chloride 102.0 Carbon Dioxide 30.0 Anion Gap 12.40 BUN 9.0 Creatinine 0.70 Estimated GFR (MDRD) 112.00 BUN/Creatinine Ratio 12.85 Glucose 151.0 H Lactic Acid Calcium 9.30 Total Bilirubin 3.20 H AST 219.0 H ALT 70.0 H Alkaline Phosphatase 154.0 H Total Creatine Kinase Troponin I Total Protein 6.90 Albumin 4.00 Globulin 2.90 Albumin/Globulin Ratio 1.37 Amylase 68.0 Lipase 71.0 Procalcitonin 0.26 Urine Color Urine Clarity Urine pH Ur Specific [place] Urine Protein Urine Glucose (UA) Urine Ketones Urine Blood Urine Nitrite Urine Bilirubin Urine Urobilinogen Ur Leukocyte Esterase Urine Microscopic RBC Urine Microscopic WBC Ur Squamous Epith Cells 04/26/18 04/26/18 04/26/18 02:55 02:55 03:45 WBC RBC Hgb Hct MCV MCH MCHC RDW Coeff of Jessie Plt Count Immature Gran % (Auto) Neut % (Auto) Lymph % (Auto) [place] % (Auto) Eos % (Auto) Baso % (Auto) Immature Gran # (Auto) Neut # (Auto) Lymph # (Auto) [place] # (Auto) Eos # (Auto) Baso # (Auto) Sodium Potassium Chloride Carbon Dioxide Anion Gap BUN Creatinine Estimated GFR (MDRD) BUN/Creatinine Ratio Glucose Lactic Acid 2.20 H Calcium Total Bilirubin AST ALT Alkaline Phosphatase Total Creatine Kinase 41.0 L Troponin I < 0.010 Total Protein Albumin Globulin Albumin/Globulin Ratio Amylase Lipase Procalcitonin Urine Color Yellow Urine Clarity Clear Urine pH 7.0 Ur Specific [place] 1.015 Urine Protein Negative Urine Glucose (UA) Negative Urine Ketones Trace Urine Blood Negative Urine Nitrite Negative Urine Bilirubin 1+ Urine Urobilinogen >=8.0 Ur Leukocyte Esterase Trace Urine Microscopic RBC 0-2 Urine Microscopic WBC 0-2 Ur Squamous Epith Cells 0-2 Orders Category Date Time Status EKG-(ED ONLY) Stat CARDIO 04/26/18 02:39 Completed ED IV/MEDIPORT/POWERPORT .ONCE EMERGENCY 04/26/18 02:37 Active AMYLASE Stat LAB 04/26/18 02:55 Completed BLOOD CULTURE (ED ONLY) Stat LAB 04/26/18 02:55 Received CBC W/ AUTO DIFF Stat LAB 04/26/18 02:55 Completed COMPREHENSIVE METABOLIC PANEL Stat LAB 04/26/18 02:55 Completed CREATINE KINASE Stat LAB 04/26/18 02:55 Completed LACTIC ACID Stat LAB 04/26/18 02:55 Completed LIPASE Stat LAB 04/26/18 02:55 Completed PROCALCITONIN Stat LAB 04/26/18 02:55 Completed TROPONIN I Stat LAB 04/26/18 02:55 Completed URINALYSIS C & S IF INDICATED Stat LAB 04/26/18 03:45 Completed 0.9 % Sodium Chloride [Saline Flush] MEDS 04/26/18 02:37 Discontinued 1 syr IVF PRN PRN Morphine Sulfate [Morphine 2 mg/ml Syringe] MEDS 04/26/18 02:40 Discontinued 2 mg IVP ONCE STA Ondansetron HCl/Pf [Zofran 4 mg/2 ml] MEDS 04/26/18 02:37 Discontinued 4 mg IVP ONCE STA Pantoprazole Sodium [Protonix IV] MEDS 04/26/18 02:43 Discontinued 40 mg IVP ONCE STA Pantoprazole Sodium [Protonix IV] MEDS 04/26/18 02:49 Discontinued 40 mg IVP ONCE STA Sodium Chloride 0.9% [Sodium Chloride] 1,000 ml MEDS 04/26/18 02:[address] ABD/PEL WO RENAL STONE PROT Stat RADS 04/26/18 02:37 Completed Medications Discontinued Medications Generic Name Dose Route Start Last Admin Trade Name Freq PRN Reason Stop Dose Admin Sodium Chloride 1,000 mls @ 1,000 mls/hr 04/26/18 02:37 04/26/18 03:14 Sodium Chloride IV 04/26/18 03:36 1,000 mls/hr BOLUS STA Administration Morphine Sulfate 2 mg 04/26/18 02:40 04/26/18 03:19 Morphine 2 Mg/Ml Syringe IVP 04/26/18 02:41 2 mg ONCE STA Administration Ondansetron HCl 4 mg 04/26/18 02:37 04/26/18 03:18 Zofran 4 Mg/2 Ml IVP 04/26/18 02:38 4 mg ONCE STA Administration Pantoprazole Sodium 40 mg 04/26/18 02:43 04/26/18 03:22 Protonix Iv IVP 04/26/18 02:44 40 mg ONCE STA Administration Pantoprazole Sodium 40 mg 04/26/18 02:49 04/26/18 05:59 Protonix Iv IVP 04/26/18 02:50 Not Given ONCE STA Sodium Chloride 1 syr 04/26/18 02:37 04/26/18 03:22 Saline Flush IVF 1 syr PRN PRN Administration To flush IV Vital Signs: Temp Pulse Resp BP Pulse Ox 04/26/18 02:33 100.3 F H 112 H 18 110/47 L 96 Departure - Departure Time of Disposition: 05:06 Disposition: HOME SELF-CARE Discharge Problem: Gastritis and duodenitis Instructions: Gastritis (ED) Condition: Fair Pt referred to PMD for follow-up: Yes IPMP verified?: No Additional Instructions: Take medications as prescribed Follow up with PCPIn 2-3 days Prescriptions: Dicyclomine HCl [Bentyl] 10 mg PO TID PRN #20 capsule PRN Reason: Abdominal Pain Ondansetron HCl [Zofran Tab] 4 mg PO Q8H PRN #14 tablet PRN Reason: Nausea / Vomiting Allergies/Adverse Reactions: Allergies meloxicam [From Mobic] Allergy (Severe, Verified 04/06/18 08:05) Dizzy, skin crawl Patient already told drugstore tamsulosin HCl [From Flomax] Allergy (Severe, Verified 04/06/18 08:05) exessive sweating Penicillins Adverse Reaction (Verified 04/06/18 08:05) Hives Home Medications: Ambulatory Orders Aspirin/Caffeine [Neida Back-Body Caplet] 1 tab PO BID PRN 01/29/18 Albuterol Sulfate [Proventil Hfa] 2 puff IH QID #1 hfa.aer.ad 04/06/18 Dicyclomine HCl [Bentyl] 10 mg PO TID PRN #20 capsule 04/26/18 Ondansetron HCl [Zofran Tab] 4 mg PO Q8H PRN #14 tablet 04/26/18 Disposition Discussed With: Patient, Family
[2018-04-26] MEDS ORDERED: MORPHINE 2 MG/ML SYRINGE IVP STA (02:40)
[2018-04-26] MEDS ORDERED: PROTONIX IV IVP STA ×2 (02:43→02:49)
[2018-04-26 02:56] VITALS: BP 110/47; TEMP 100.3
--- NOTE | 2018-04-26 03:43 | CT ---
EXAM: CT scan abdomen pelvis without contrast HISTORY: Diffuse abdominal pain COMPARISON: CT scan abdomen pelvis 01/29/2018 FINDINGS: Tenuous axial images obtained through the abdomen pelvis without contrast utilizing 3-mm c ollimation. Sagittal and coronal reconstructions were imaged and reviewed.. Redemonstrated is bibas ilar bronchiectasis left greater than right. Large gallstone is seen within the gallbladder. There is a hiatal hernia. The liver, pancreas, spleen and adrenal glands have normal unenhanced CT appeara nce.. Atherosclerotic changes are seen involving the aorta without aneurysm. Cysts are seen within t he left kidney. The right kidney is unremarkable.. Redemonstrated is a small gastric lipoma along t he greater curvature margin.. The prostate gland enlarged. Multiple bladder diverticuli are noted. The appendix is normal in size and demonstrates the appendicolith proximally. Submucosal fat deposition is seen in the ascending t ransverse and descending colon compatible with chronic colitis. Scattered diverticuli are seen withi n the left colon.. Stool moderately distends the rectosigmoid colon. Questionable pneumatosis is se en in the rectum likely related to air between the stool filled colon and normal colonic wall.. No s urrounding inflammation or free fluid is identified.. Degenerative changes are noted throughout the lumbar spine bilateral hips. IMPRESSION: Bibasilar bronchiectasis left greater than right. Cholelithiasis. Stool distended rectosigmoid colon without wall thickening or surrounding inflammation or free fluid. . Questionable pneumatosis as described. Changes consistent with chronic colitis and diverticulosis.. Bladder diverticuli. Prostatic enlargement. ASVD without aneurysm. Hiatal hernia.
== END 2018-04-26 05:45 | disposition home or self-care (01) ==
LOC: ED 02:32
DX: K29.70 Gastritis, unspecified, without bleeding (principal); K29.80 Duodenitis without bleeding; R07.9 Chest pain, unspecified; F17.210 Nicotine dependence, cigarettes, uncomplicated; R10.84 Generalized abdominal pain; R11.0 Nausea; R50.9 Fever, unspecified; J44.9 Chronic obstructive pulmonary disease, unspecified; M54.9 Dorsalgia, unspecified; G89.29 Other chronic pain
CPT/HCPCS: 36415; 74176; 80053; 81001; 82150; 82550; 83605; 83690; 84145; 84484; 85025; 87040; 87070; 87186; 93005; 93010; 96361; 96374; 96375; 99283

== ENCOUNTER 2018-06-24 10:39 | Outpatient (CLI) ==
[2012-11-30 13:15] VITALS: BP 116/73; TEMP 99.2
== END 2018-06-24 10:40 | disposition home or self-care (01) ==
LOC: RHC-LAB 10:39 → FCC-LAB 10:40
PROVIDERS: ATTEND Nurse Practitioner Family
DX: E03.9 Hypothyroidism, unspecified (principal); R74.8 Abnormal levels of other serum enzymes
CPT/HCPCS: 36415; 80053; 84443

== ENCOUNTER 2018-07-03 17:33 | Emergency (ER) | payer OTHER ==
[2018-07-03 17:39] VITALS: BP 155/86; BMI 27.8
--- NOTE | 2018-07-03 17:47 | ED.PDOC ---
General ED Provider: Dr. DUKE WERNER Chief Complaint: Abdominal Pain Stated Complaint: Sudden onset of mid epigastric abdominal pain not associated with nausea or vomiting. Described as burning sensation shooting through to his back.Has happened before but states is the worse he has experienced, Denies nausea or emesis. Denies coughing or congestion. Time Seen by Physician: 17:55 Mode of Arrival: Walk-In Information Source: Patient Exam Limitations: No limitations Primary Care Provider: AUDI CERON Nursing and Triage Documentation Reviewed and Agree: Yes Does patient meet sepsis criteria?: No System Inflammatory Response Syndrome: Not Applicable Sepsis Protocol: For patient's 13 years and over: Temp is 96.8 and below OR 101 and greater Pulse >90 BPM Resp >20/minute Acutely Altered Mental Status Are patient's symptoms suggestive of a new infection, such as: -Pneumonia -Skin, Soft Tissue -Endocarditis -UTI -Bone, Joint Infection -Implantable Device -Acute Abdominal Infection -Wound Infection -Meningitis -Blood Stream Catheter Infection -Unknown Review of Systems - Review Of Systems Constitutional: Reports: No symptoms Eyes: Reports: No symptoms Ears, Nose, Mouth, Throat: Reports: No symptoms Respiratory: Reports: No symptoms Cardiac: Reports: No symptoms GI: Reports: Abdominal pain : Reports: No symptoms Musculoskeletal: Reports: No symptoms Skin: Reports: No symptoms Neurological: Reports: No symptoms Endocrine: Reports: No symptoms Hematologic/Lymphatic: Reports: No symptoms All Other Systems: Reviewed and Negative Past Medical History - Past Medical History Previously Healthy: No Endocrine: Reports: None Cardiovascular: Reports: CHF Respiratory: Reports: COPD Hematological: Reports: None Gastrointestinal: Reports: None Genitourinary: Reports: UTI, Other (urinary retention) Neuro/Psych: Reports: Other (spinal stenosis) Musculoskeletal: Reports: Arthritis, Back Pain Cancer: Reports: None Other Pertinent Past Medical History: /uti,Back, Left Knee, Hernia Repair - Surgical History General Surgical History: Reports: Orthopedic (Back, Left Knee), Hernia Repair, Other (Hernia Repair) - Family History Family History: Reports: Unknown - Social History Smoking Status: Current some day smoker, Light tobacco smoker Hx Substance Use: No Alcohol Screening: None - Immunizations Tetanus Shot up to Date: Yes Physical Exam - Physical Exam Appearance: Well-appearing, Obese Ill-appearing: None Pain Distress: Mild Eyes: ERNESTO, EOMI, Conjunctiva clear ENT: Ears normal, Nose normal, Oropharynx normal Neck: Supple Respiratory: Airway patent, Breath sounds clear, Breath sounds equal, Respirations nonlabored Cardiovascular: RRR, Pulses normal, No rub, No murmur GI/: Soft, No masses, Bowel sounds normal, No Organomegaly, Tender Musculoskeletal: Normal strength, ROM intact, No edema, No calf tenderness Skin: Warm, Dry, Normal color Neurological: Sensation intact, Motor intact, Reflexes intact, Cranial nerves intact, Alert, Oriented Psychiatric: Affect appropriate, Mood appropriate Interpretation - Radiology Interpretation Radiology Interpretation By: Radiologist Radiology Results: Positive (cholelithiasis and possible choledocholithasis 1 cm ) Re-Evaluation - Re-Evaluation Time of Re-Evaluation: 19:30 Status: Improved Vital Signs Stable: Yes Appearance: NAD Lungs: Clear Skin: Warm and Dry Neuro: Alert and Oriented X3 CV: RRR Additional Comments: abdom soft non tender Critical Care Note - Critical Care Note Total Time (mins): 60 Course - Course Hematology/Chemistry: 07/03/18 17:45 07/03/18 17:45 Orders, Labs, Meds: Lab Review 07/03/18 07/03/18 07/03/18 17:25 17:45 17:45 WBC 10.70 H RBC 5.62 Hgb 16.9 Hct 51.0 MCV 90.7 MCH 30.1 MCHC 33.1 RDW Coeff of Jessie 13.5 Plt Count 275 Immature Gran % (Auto) 0.3 Neut % (Auto) 51.9 Lymph % (Auto) 32.1 [place] % (Auto) 13.8 H Eos % (Auto) 1.2 Baso % (Auto) 0.7 Immature Gran # (Auto) 0.0 Neut # (Auto) 5.6 Lymph # (Auto) 3.4 [place] # (Auto) 1.5 Eos # (Auto) 0.1 Baso # (Auto) 0.1 Sodium 140.7 Potassium 3.28 L Chloride 97.4 L Carbon Dioxide 34.9 H Anion Gap 11.68 BUN 6.5 L Creatinine 0.65 Estimated GFR (MDRD) 121.00 BUN/Creatinine Ratio 10.00 Glucose 92.9 Calcium 9.19 Total Bilirubin 1.30 AST 68.8 H ALT 20.2 Alkaline Phosphatase 114.6 Troponin I < 0.012 Total Protein 7.16 Albumin 4.08 Globulin 3.08 Albumin/Globulin Ratio 1.32 Amylase 64.8 Lipase 46.4 Urine Color Urine Clarity Urine pH Ur Specific [place] Urine Protein Urine Glucose (UA) Urine Ketones Urine Blood Urine Nitrite Urine Bilirubin Urine Urobilinogen Ur Leukocyte Esterase Urine Microscopic WBC Ur Squamous Epith Cells Urine Opiates Screen Ur Oxycodone Screen Urine Methadone Screen Ur Propoxyphene Screen Ur Barbiturates Screen U Tricyclic Antidepress Ur Phencyclidine Scrn Ur Amphetamine Screen U Methamphetamines Scrn U Benzodiazepines Scrn Urine Cocaine Screen U Cannabinoids Screen 07/03/18 07/03/18 18:00 18:00 WBC RBC Hgb Hct MCV MCH MCHC RDW Coeff of Jessie Plt Count Immature Gran % (Auto) Neut % (Auto) Lymph % (Auto) [place] % (Auto) Eos % (Auto) Baso % (Auto) Immature Gran # (Auto) Neut # (Auto) Lymph # (Auto) [place] # (Auto) Eos # (Auto) Baso # (Auto) Sodium Potassium Chloride Carbon Dioxide Anion Gap BUN Creatinine Estimated GFR (MDRD) BUN/Creatinine Ratio Glucose Calcium Total Bilirubin AST ALT Alkaline Phosphatase Troponin I Total Protein Albumin Globulin Albumin/Globulin Ratio Amylase Lipase Urine Color Yellow Urine Clarity Clear Urine pH 6.5 Ur Specific [place] 1.010 Urine Protein Negative Urine Glucose (UA) Negative Urine Ketones Negative Urine Blood Negative Urine Nitrite Negative Urine Bilirubin Negative Urine Urobilinogen 1.0 Ur Leukocyte Esterase 1+ Urine Microscopic WBC 10-20 Ur Squamous Epith Cells 5-10 Urine Opiates Screen Negative Ur Oxycodone Screen Negative Urine Methadone Screen Negative Ur Propoxyphene Screen Negative Ur Barbiturates Screen Negative U Tricyclic Antidepress Negative Ur Phencyclidine Scrn Negative Ur Amphetamine Screen Negative U Methamphetamines Scrn Negative U Benzodiazepines Scrn Negative Urine Cocaine Screen Negative U Cannabinoids Screen Negative Orders Category Date Time Status EKG-(ED ONLY) Stat CARDIO 07/03/18 17:46 Completed AMYLASE Stat LAB 07/03/18 17:25 Completed CBC W/ AUTO DIFF Stat LAB 07/03/18 17:45 Completed CMP [COMPREHENSIVE METABOLIC PANEL] Stat LAB 07/03/18 17:45 Completed LIPASE Stat LAB 07/03/18 17:25 Completed TROPONIN I Stat LAB 07/03/18 17:45 Completed UA [URINALYSIS C & S IF INDICATED] Stat LAB 07/03/18 18:00 Completed URINE CULTURE Stat LAB 07/03/18 18:00 Received URINE DRUG SCREEN (RAPID FOR ED) [DRUG SCREEN, URINE, LAB 07/03/18 18:00 Completed RAPID] Stat Mag-Al Plus//Lidocaine [Gi Cocktail] MEDS 07/03/18 19:31 Discontinued 30 ml PO ONCE STA Potassium Chloride [K-Dur] MEDS 07/03/18 19:43 Discontinued 20 meq PO ONCE STA CHEST, 1V AP ONLY Stat RADS 07/03/18 17:[address] ABDOMEN/PELVIS WO CONTRAST Stat RADS 07/03/18 19:08 Completed Medications Discontinued Medications Generic Name Dose Route Start Last Admin Trade Name Eric PRN Reason Stop Dose Admin Al Hydroxide/Mg Hydroxide 30 ml 07/03/18 19:31 07/03/18 19:37 Gi Cocktail PO 07/03/18 19:32 30 ml ONCE STA Administration Potassium Chloride 20 meq 07/03/18 19:43 07/03/18 19:48 K-Dur PO 07/03/18 19:44 20 meq ONCE STA Administration Vital Signs: Temp Pulse Resp BP Pulse Ox 07/03/18 20:25 97.8 F 07/03/18 17:34 98.7 F 95 H 20 155/86 H 98 Departure - Departure Time of Disposition: 19:45 Disposition: HOME SELF-CARE Discharge Problem: Acute gastritis, Cholelithiasis, Choledocholithiasis Instructions: Gastritis (ED), Diet for Stomach Ulcers and Gastritis (ED) Condition: Fair Pt referred to PMD for follow-up: Yes IPMP verified?: No Additional Instructions: Remain on bland diet Avoid aggravativg food items Keep well hydrated Consume potassium rich foods Avoid aspirin products Avoid gas forming foods and beverages(soda, coffee) Have nothing to eat or drink after midnight Thursday and be at Dr Ирина Frost at 8 AM Thursday morning for evaluation and ultrasound Prescriptions: Ranitidine HCl [Zantac] 150 mg PO BIDAC #30 tablet Allergies/Adverse Reactions: Allergies meloxicam [From Mobic] Allergy (Severe, Verified 07/03/18 17:40) Dizzy, skin crawl Patient already told drugstore tamsulosin HCl [From Flomax] Allergy (Severe, Verified 07/03/18 17:40) exessive sweating Penicillins Adverse Reaction (Verified 07/03/18 17:40) Hives Home Medications: Ambulatory Orders Aspirin/Caffeine [Neida Back-Body Caplet] 1 tab PO BID PRN 01/29/18 Albuterol Sulfate [Proventil Hfa] 2 puff IH QID #1 hfa.aer.ad 04/06/18 Dicyclomine HCl [Bentyl] 10 mg PO TID PRN #20 capsule 04/26/18 Ondansetron HCl [Zofran Tab] 4 mg PO Q8H PRN #14 tablet 04/26/18 Ranitidine HCl [Zantac] 150 mg PO BIDAC #30 tablet 07/03/18 Disposition Discussed With: Patient (Patient refuses transfer due to home responsibilites/signs out AMA), Other (Explained to patient diagnos and recommended treatment -transfer to [facility] for consult and treatment / additional evaluaton Ultrasound or ERCP/) GI Complaint Exam - Abdominal Pain Complaint/Exam Onset: Gradual Symptoms Are: Still present Timing: Constant Initial Severity: Severe Current Severity: Moderate Location of Pain: Epigastric Radiates To: Reports: Back Character: Reports: Burning Aggravating: Reports: Food, Position, Eating Alleviating: Reports: Position, Spontaneous resolution, Antacids Associated Signs and Symptoms: Denies: Diaphoresis, Fever, Cough, Chest pain, Dizziness, Back pain, Constipation, Blood in stool, Dysuria, Urinary frequency, Decreased urine output, Decreased appetite, Discharge, Nausea, Vomiting, Diarrhea, Decreased activity AAA Risk Factors: Reports: None Cardiac Risk Factors: Reports: Hypertension, Smoking, Elevated lipids Testicular Torsion Risk Factors: Reports: None Surgical Obstruction Risk Factors: Reports: None Related Surgical History: Reports: None Abdominal Findings: Present: Other (epigastric tenderness) Genitalia Exam: Present: Normal findings Differential Diagnoses: Irritable Bowel Syndrome, GB, PUD, Other (gastritis)
--- NOTE | 2018-07-03 19:23 | DI ---
EXAM: Portable chest. HISTORY: Chest pain. COMPARISON: 04/06/2018 TECHNIQUE:A single portable AP view of the chest. FINDINGS: Lungs: The lung voulmes are normal. Interstitial and airspace opacities are seen in the left lung base which are increased in compari son to the prior study. There are no suspicious nodules. The pulmonary interstitium is within normal limits. There is no pneumothorax. Cardiovascular: The heart is enlarged. The pulmonary vasculature is within normal limits.. The aorta is unremarkable. Nelly: Normal. Osseous structures. Normal for age. IMPRESSION: Left lower lobe interstitial airspace opacities which may be due to atelectasis. Developing pneumon ia cannot be excluded. Recommend follow-up.
[2018-07-03] MEDS ORDERED: GI COCKTAIL PO STA (19:31)
[2018-07-03] MEDS ORDERED: K-DUR PO STA (19:43)
--- NOTE | 2018-07-03 19:50 | CT ---
Exam: CT of the abdomen and pelvis without contrast History: Epigastric pain Technique: [address] of the abdomen and pelvis without intravascular contrast FINDINGS: The lung bases show no bronchiectasis and bronchial wall thickening as well as emphysemato us change. There is a small hiatus hernia. The liver, pancreas, spleen and adrenal glands appear no rmal. Cholelithiasis without abnormal gallbladder distension. Possible choledocholithiasis identifi ed measuring 1 cm diameter. Duodenal diverticula without complication. Kidneys and proximal collect ing system are unremarkable. The appendix is not seen. Bowel loops demonstrate normal caliber. No inflamatory change seen in the mesentery or retroperitoneum. Left colonic diverticulosis. Colonic diverticulosis of the sigmoid. No pelvic fat inflammation. Generous prostate gland. Divert icula of the urinary bladder without surrounding inflammation. Small fatty right inguinal hernia wit hout complication. No acute findings of the skeleton. Impression: 1. Choledocholithiasis and cholelithiasis. Correlate for biliary symptoms. 2. No bowel or urinary obstruction 3. Colonic diverticulosis without evidence of acute diverticulitis 4. Chronic findings of the lung bases with bronchiectasis, bronchial wall thickening and emphysema
[2018-07-03 20:26] VITALS: TEMP 97.8
== END 2018-07-03 21:20 | disposition home or self-care (01) ==
LOC: ED 17:33
DX: K29.00 Acute gastritis without bleeding (principal); K80.20 Calculus of gallbladder without cholecystitis without obstruction; K80.50 Calculus of bile duct without cholangitis or cholecystitis without obstruction; F17.210 Nicotine dependence, cigarettes, uncomplicated; Z79.899 Other long term (current) drug therapy
CPT/HCPCS: 36415; 80053; 80306; 81001; 82150; 83690; 84484; 85025; 87086; 93005; 93010; 99283

== ENCOUNTER 2018-07-05 09:05 | Outpatient (CLI) ==
[2012-11-30 13:15] VITALS: BP 116/73; TEMP 99.2
--- NOTE | 2018-07-05 11:06 | US ---
EXAM: Ultrasound abdomen limited right upper quadrant HISTORY: Calculus of gallbladder without cholecystitis COMPARISON: None TECHNIQUE: Limited ultrasound abdomen right upper quadrant was performed FINDINGS: Pancreas obscured secondary to bowel gas shadowing. Liver top normal in size. Liver norm al in echogenicity. Main portal vein patent with direction of flow. There are gallstones. Early ga llbladder wall thickening. No pericholecystic fluid. There is dilation of the common bile duct alisha uring up to 1.7 cm with choledocholithiasis with a stones measuring up to approximately 1.0 cm. Dist al common bile duct not visualized. IMPRESSION: Choledocholithiasis with dilation of the common bile duct measuring up to 1.7 cm. Addit ionally, there is cholelithiasis with borderline gallbladder wall thickening.
== END 2018-07-05 09:06 | disposition home or self-care (01) ==
LOC: RAD 09:05
PROVIDERS: ATTEND Nurse Practitioner Family
DX: K80.20 Calculus of gallbladder without cholecystitis without obstruction (principal); K80.50 Calculus of bile duct without cholangitis or cholecystitis without obstruction

== ENCOUNTER 2018-07-06 02:20 | Emergency (ER) | payer OTHER ==
[2018-07-06 03:00] VITALS: BP 139/66; TEMP 99; BMI 28.1
[2018-07-06] MEDS ORDERED: MORPHINE 4 MG/ML SYRINGE IVP STA (03:22)
[2018-07-06] MEDS ORDERED: ZOFRAN 4 MG/2 ML IVP STA ×2 (03:22→04:51)
[2018-07-06] MEDS ORDERED: SODIUM CHLORIDE 1,000 ML IV STA (03:22)
--- NOTE | 2018-07-06 03:39 | ED.PDOC ---
General ED Provider: Dr. DILLAN SCANLON Chief Complaint: Abdominal Pain Stated Complaint: Patient is a 68 year old male who comes to the ER with right upper quadrant abdominal pain for 2 days. He was seen two days ago with similar complaints, refused to be transfered to [facility]. Followed up with PCP who got an US done showing common bile duct stone. Returns today with worsening of pain. Now willing to go to [place]. Time Seen by Physician: 03:00 Mode of Arrival: Ambulance Information Source: Patient Exam Limitations: No limitations Primary Care Provider: AUDI CERON Nursing and Triage Documentation Reviewed and Agree: Yes Does patient meet sepsis criteria?: No System Inflammatory Response Syndrome: Not Applicable Sepsis Protocol: For patient's 13 years and over: Temp is 96.8 and below OR 101 and greater Pulse >90 BPM Resp >20/minute Acutely Altered Mental Status Are patient's symptoms suggestive of a new infection, such as: -Pneumonia -Skin, Soft Tissue -Endocarditis -UTI -Bone, Joint Infection -Implantable Device -Acute Abdominal Infection -Wound Infection -Meningitis -Blood Stream Catheter Infection -Unknown GI Complaint Exam - Abdominal Pain Complaint/Exam Onset: Gradual Duration: 3 days Symptoms Are: Still present Timing: Constant Initial Severity: Moderate Current Severity: Severe Location of Pain: RUQ Radiates To: Reports: Back Character: Reports: Aching, Throbbing Aggravating: Reports: Eating Alleviating: Reports: None Associated Signs and Symptoms: Reports: Back pain AAA Risk Factors: Reports: None Cardiac Risk Factors: Reports: None Testicular Torsion Risk Factors: Reports: None Surgical Obstruction Risk Factors: Reports: None Abdominal Findings: Present: Other (abdominal tenderness to palpation mostly on the right upper quadrant ) Differential Diagnoses: GB Quality Indicators for Cardiac Chest Pain: EKG in 10min. Quality Indicator For Non-Traumatic Chest Pain/Syncope: EKG Performed Review of Systems - Review Of Systems Constitutional: Reports: No symptoms Eyes: Reports: No symptoms Ears, Nose, Mouth, Throat: Reports: No symptoms Respiratory: Reports: No symptoms Cardiac: Reports: No symptoms GI: Reports: Abdominal pain : Reports: No symptoms Musculoskeletal: Reports: No symptoms Skin: Reports: No symptoms Neurological: Reports: No symptoms Endocrine: Reports: No symptoms Hematologic/Lymphatic: Reports: No symptoms All Other Systems: Reviewed and Negative Past Medical History - Past Medical History Previously Healthy: No Endocrine: Reports: None Cardiovascular: Reports: CHF Respiratory: Reports: COPD Hematological: Reports: None Gastrointestinal: Reports: None Genitourinary: Reports: UTI, Other (urinary retention) Neuro/Psych: Reports: Other (spinal stenosis) Musculoskeletal: Reports: Arthritis, Back Pain Cancer: Reports: None Other Pertinent Past Medical History: /uti,Back, Left Knee, Hernia Repair - Surgical History General Surgical History: Reports: Orthopedic (Back, Left Knee), Hernia Repair, Other (Hernia Repair) - Family History Family History: Reports: Unknown - Social History Smoking Status: Current some day smoker, Light tobacco smoker Hx Substance Use: No Alcohol Screening: None - Immunizations Tetanus Shot up to Date: Yes Physical Exam - Physical Exam Appearance: Ill-appearing Ill-appearing: Moderate Pain Distress: Severe Eyes: ERNESTO, EOMI, Conjunctiva clear ENT: Ears normal, Nose normal, Oropharynx normal Neck: Supple Respiratory: Airway patent, Breath sounds clear, Breath sounds equal, Respirations nonlabored Cardiovascular: RRR GI/: Soft, Nontender, No masses, Bowel sounds normal, No Organomegaly Musculoskeletal: Normal strength, ROM intact, No edema, No calf tenderness Skin: Warm, Dry, Normal color Neurological: Sensation intact, Motor intact, Reflexes intact, Cranial nerves intact, Alert, Oriented Psychiatric: Anxious Interpretation - Radiology Interpretation Radiology Interpretation By: Radiologist Radiology Results: Positive (Choledocholithiasis with dilation of the common bile duct measuring up to 1.7 cm additionally there is cholelithiasis with borderline gallbladder wall thickening.) Exam Interpreted: Other (US of gallbladder ) - EKG Interpretation Rate: Normal Ectopy: None [place]: NL ST Segment: Normal Interpretation: nonspecific block, old inferior infarct. EKG Comparison: No significant changes Re-Evaluation - Re-Evaluation Time of Re-Evaluation: 04:11 Status: Improved Vital Signs Stable: Yes Pain Level: better Physician Notification - Case Discussed Physician Notified: Dr Floyd Time of Notification: 04:10 (accepted but admit to hospitalist. ) Physician Notified: Dr Conte Time of Notification: 04:31 (accepted to admit with consult to GI for possible ERCP) Critical Care Note - Critical Care Note Total Time (mins): 45 Course - Course Hematology/Chemistry: 07/06/18 03:30 07/06/18 03:30 Orders, Labs, Meds: Lab Review 07/06/18 07/06/18 07/06/18 03:30 03:30 03:45 WBC 10.32 H RBC 5.36 Hgb 15.9 Hct 48.6 MCV 90.7 MCH 29.7 MCHC 32.7 RDW Coeff of Jessie 13.7 Plt Count 209 Immature Gran % (Auto) 0.4 Neut % (Auto) 82.7 Lymph % (Auto) 7.1 L [place] % (Auto) 9.1 Eos % (Auto) 0.4 Baso % (Auto) 0.3 Immature Gran # (Auto) 0.0 Neut # (Auto) 8.5 H Lymph # (Auto) 0.7 [place] # (Auto) 0.9 Eos # (Auto) 0.0 Baso # (Auto) 0.0 Sodium 141.1 Potassium 3.63 Chloride 99.8 Carbon Dioxide 33.5 H Anion Gap 11.43 BUN 7.2 L Creatinine 0.65 Estimated GFR (MDRD) 121.00 BUN/Creatinine Ratio 11.07 Glucose 136.9 H Calcium 9.04 Total Bilirubin 4.04 H D AST 106.0 H D ALT 95.3 H D Alkaline Phosphatase 202.7 H D Total Protein 6.93 Albumin 3.89 Globulin 3.04 Albumin/Globulin Ratio 1.27 Amylase 55.2 Lipase 130.1 Urine Color Dark Urine Clarity Clear Urine pH 5.5 Ur Specific [place] 1.020 Urine Protein 1+ Urine Glucose (UA) Negative Urine Ketones Trace Urine Blood Negative Urine Nitrite Negative Urine Bilirubin 2+ Urine Urobilinogen 4.0 Ur Leukocyte Esterase Negative Urine Microscopic RBC 0-2 Urine Microscopic WBC 0-2 Ur Squamous Epith Cells Not present Ur Renal Epithelial Cell 0-2 Urine Bacteria Trace Orders Category Date Time Status EKG-(ED ONLY) Stat CARDIO 07/06/18 02:20 Completed ED IV/MEDIPORT/POWERPORT .ONCE EMERGENCY 07/06/18 03:22 Active AMYLASE Stat LAB 07/06/18 03:30 Completed CBC W/ AUTO DIFF Stat LAB 07/06/18 03:30 Completed COMPREHENSIVE METABOLIC PANEL Stat LAB 07/06/18 03:30 Completed LIPASE Stat LAB 07/06/18 03:30 Completed URINALYSIS C & S IF INDICATED Stat LAB 07/06/18 03:45 Completed 0.9 % Sodium Chloride [Saline Flush] MEDS 07/06/18 03:22 Discontinued 1 syr IVF PRN PRN Morphine Sulfate [Morphine 4 mg/ml Syringe] MEDS 07/06/18 03:22 Discontinued 4 mg IVP ONCE STA Ondansetron HCl/Pf [Zofran 4 mg/2 ml] MEDS 07/06/18 03:22 Discontinued 4 mg IVP ONCE STA Ondansetron HCl/Pf [Zofran 4 mg/2 ml] MEDS 07/06/18 04:51 Discontinued 4 mg IVP ONCE STA Sodium Chloride 0.9% [Sodium Chloride] 1,000 ml MEDS 07/06/18 03:22 Discontinued IV BOLUS Medications Discontinued Medications Generic Name Dose Route Start Last Admin Trade Name Freq PRN Reason Stop Dose Admin Sodium Chloride 1,000 mls @ 1,000 mls/hr 07/06/18 03:22 07/06/18 03:43 Sodium Chloride IV 07/06/18 04:21 1,000 mls/hr BOLUS STA Administration Morphine Sulfate 4 mg 07/06/18 03:22 07/06/18 03:42 Morphine 4 Mg/Ml Syringe IVP 07/06/18 03:23 4 mg ONCE STA Administration Ondansetron HCl 4 mg 07/06/18 03:22 07/06/18 03:42 Zofran 4 Mg/2 Ml IVP 07/06/18 03:23 4 mg ONCE STA Administration Ondansetron HCl 4 mg 07/06/18 04:51 Zofran 4 Mg/2 Ml IVP 07/06/18 04:52 ONCE STA Sodium Chloride 1 syr 07/06/18 03:22 Saline Flush IVF PRN PRN To flush IV Vital Signs: Temp Pulse Resp BP Pulse Ox 07/06/18 02:42 99 F 91 H 20 139/66 96 Departure - Departure Time of Disposition: 04:30 Disposition: TSF SHORT-TRM HOSP Discharge Problem: Choledocholithiasis, Abdominal pain Instructions: ERCP (Endoscopic Retrograde Cholangiopancreatography) (DC) Condition: Fair Pt referred to PMD for follow-up: Yes IPMP verified?: No Allergies/Adverse Reactions: Allergies meloxicam [From Mobic] Allergy (Severe, Verified 07/06/18 03:00) Dizzy, skin crawl Patient already told drugstore tamsulosin HCl [From Flomax] Allergy (Severe, Verified 07/06/18 03:00) exessive sweating Penicillins Adverse Reaction (Verified 07/06/18 03:00) Hives Home Medications: Ambulatory Orders Aspirin/Caffeine [Neida Back-Body Caplet] 1 tab PO BID PRN 01/29/18 Albuterol Sulfate [Proventil Hfa] 2 puff IH QID #1 hfa.aer.ad 04/06/18 Ranitidine HCl [Zantac] 150 mg PO BIDAC #30 tablet 07/03/18 Duloxetine HCl [Cymbalta] 0 mg PO DAILY 07/06/18 Pt. Stabilized Within Hospital's Capabilities/Transferred To: [facility]. Transfer Form Completed: Yes Disposition Discussed With: Patient, Family
== END 2018-07-06 04:50 | disposition short-term general hospital (02) ==
LOC: ED 02:20
DX: K80.50 Calculus of bile duct without cholangitis or cholecystitis without obstruction (principal); F17.210 Nicotine dependence, cigarettes, uncomplicated; R10.9 Unspecified abdominal pain; Z87.440 Personal history of urinary (tract) infections
CPT/HCPCS: 36415; 80053; 81001; 82150; 83690; 85025; 93005; 93010; 96360; 96375; 99285

== ENCOUNTER 2018-07-16 10:40 | Outpatient (CLI) | payer OTHER ==
[2012-11-30 13:15] VITALS: BP 116/73; TEMP 99.2
== END 2018-07-16 10:41 | disposition home or self-care (01) ==
LOC: RHC-LAB 10:40 → FCC-LAB 10:41
PROVIDERS: ATTEND Nurse Practitioner Family
DX: K80.20 Calculus of gallbladder without cholecystitis without obstruction (principal); Z98.890 Other specified postprocedural states
CPT/HCPCS: 36415; 80053; 85025

== ENCOUNTER 2018-07-16 23:13 | Emergency (ER) | payer OTHER ==
[2018-07-16 23:18] VITALS: BP 129/74; TEMP 97.9; BMI 27.1
[2018-07-16] MEDS ORDERED: URO-JET MUCOUSMEMB STA (23:30)
--- NOTE | 2018-07-16 23:34 | ED.PDOC ---
General ED Provider: Dr. DUKE FAJARDO-ER Chief Complaint: Urinary Problem Stated Complaint: i cant pegiovany Time Seen by Physician: 23:20 Mode of Arrival: Walk-In Information Source: Patient, Family Exam Limitations: No limitations Primary Care Provider: AUDI MOODY Nursing and Triage Documentation Reviewed and Agree: Yes Does patient meet sepsis criteria?: No System Inflammatory Response Syndrome: Not Applicable Sepsis Protocol: For patient's 13 years and over: Temp is 96.8 and below OR 101 and greater Pulse >90 BPM Resp >20/minute Acutely Altered Mental Status Are patient's symptoms suggestive of a new infection, such as: -Pneumonia -Skin, Soft Tissue -Endocarditis -UTI -Bone, Joint Infection -Implantable Device -Acute Abdominal Infection -Wound Infection -Meningitis -Blood Stream Catheter Infection -Unknown Complaint Exam - Complaint/Exam Patient Complains of: Reports: Groin pain Onset/Duration: a few hours Symptoms Are: Still present Timing: Constant Initial Severity: Mild Current Severity: Moderate Location of Pain: Reports: Suprapubic Character: Reports: Constant pressure, Dull Aggravating: Reports: Voiding, Straining Associated Signs and Symptoms: Denies: Diaphoresis, Back pain, Fever, Hematuria , Dysuria, Constipation, Blood in stool, Rectal pain, Appetite change, Nausea, Vomiting, Penile swelling, Penile discharge, Decreased urine output, Increased urine frequency, Increased thirst, Decreased activity, Lethargy, Scrotal pain, Scrotal swelling, Abdominal Pain Related History: Reports: Similar episode Abdominal Findings: Present: None Differential Diagnoses: Other Review of Systems - Review Of Systems Constitutional: Reports: No symptoms Eyes: Reports: No symptoms Ears, Nose, Mouth, Throat: Reports: No symptoms Respiratory: Reports: No symptoms Cardiac: Reports: No symptoms GI: Reports: No symptoms : Reports: Other Musculoskeletal: Reports: No symptoms Skin: Reports: No symptoms Neurological: Reports: No symptoms Endocrine: Reports: No symptoms Hematologic/Lymphatic: Reports: No symptoms All Other Systems: Reviewed and Negative Past Medical History - Past Medical History Previously Healthy: No Endocrine: Reports: None Cardiovascular: Reports: CHF Respiratory: Reports: COPD Hematological: Reports: None Gastrointestinal: Reports: None Genitourinary: Reports: UTI, Other (urinary retention) Neuro/Psych: Reports: Other (spinal stenosis) Musculoskeletal: Reports: Arthritis, Back Pain Cancer: Reports: None Other Pertinent Past Medical History: /uti,Back, Left Knee, Hernia Repair - Surgical History General Surgical History: Reports: Orthopedic (Back, Left Knee), Hernia Repair, Other (Hernia Repair) - Family History Family History: Reports: Unknown - Social History Smoking Status: Current some day smoker, Light tobacco smoker Hx Substance Use: No Alcohol Screening: Occasionally - Immunizations Tetanus Shot up to Date: Yes Physical Exam - Physical Exam Appearance: Well-appearing, No pain distress, Well-nourished Eyes: ERNESTO, EOMI, Conjunctiva clear ENT: Ears normal, Nose normal, Oropharynx normal Neck: Supple Respiratory: Airway patent, Breath sounds clear, Breath sounds equal, Respirations nonlabored Cardiovascular: RRR, Pulses normal, No rub, No murmur GI/: Soft, Nontender, No masses, Bowel sounds normal, No Organomegaly Musculoskeletal: Normal strength, ROM intact, No edema, No calf tenderness Skin: Warm, Dry, Normal color Neurological: Sensation intact, Motor intact, Reflexes intact, Cranial nerves intact, Alert, Oriented Psychiatric: Affect appropriate, Mood appropriate Re-Evaluation - Re-Evaluation Time of Re-Evaluation: 23:34 Status: Improved Vital Signs Stable: Yes Pain Level: 0 Appearance: NAD Lungs: Clear Skin: Warm and Dry Neuro: Alert and Oriented X3 CV: RRR Additional Comments: over 1000 cc noted galvan bag Critical Care Note - Critical Care Note Total Time (mins): 0 Course - Course Orders, Labs, Meds: Orders Category Date Time Status Bladder Scan [ED BLADDER SCAN] .ONCE EMERGENCY 07/16/18 23:30 Active Galvan [ED CATHETER INSERTION AND CARE] .ONCE EMERGENCY 07/16/18 23:30 Active Lidocaine HCl [Uro-Jet] MEDS 07/16/18 23:30 Discontinued 10 ml [id number] ONCE STA Medications Discontinued Medications Generic Name Dose Route Start Last Admin Trade Name Freq PRN Reason Stop Dose Admin Lidocaine HCl 10 ml 07/16/18 23:30 Uro-Jet [id number] 07/16/18 23:31 ONCE STA Vital Signs: Temp Pulse Resp BP Pulse Ox 07/16/18 23:14 97.9 F 96 H 15 129/74 99 Departure - Departure Time of Disposition: 23:34 Disposition: HOME SELF-CARE Discharge Problem: Urinary retention Instructions: Urinary Retention in Men (ED) Condition: Good Pt referred to PMD for follow-up: Yes IPMP verified?: No Additional Instructions: galvan catheter care---f/u with mr moody thursday---they will determine to remove the catheter vs referral to urology Allergies/Adverse Reactions: Allergies meloxicam [From Mobic] Allergy (Severe, Verified 07/06/18 03:00) Dizzy, skin crawl Patient already told drugstore tamsulosin HCl [From Flomax] Allergy (Severe, Verified 07/06/18 03:00) exessive sweating Penicillins Adverse Reaction (Verified 07/06/18 03:00) Hives Home Medications: Ambulatory Orders Albuterol Sulfate [Proventil Hfa] 2 puff IH QID #1 hfa.aer.ad 04/06/18 Ranitidine HCl [Zantac] 150 mg PO BIDAC #30 tablet 07/03/18 Duloxetine HCl [Cymbalta] 0 mg PO DAILY 07/06/18 Cefdinir 300 mg PO BID 07/16/18 Disposition Discussed With: Patient, Family
== END 2018-07-17 00:50 | disposition home or self-care (01) ==
LOC: ED 23:13
DX: R33.9 Retention of urine, unspecified (principal); R10.30 Lower abdominal pain, unspecified; F17.210 Nicotine dependence, cigarettes, uncomplicated; Z87.440 Personal history of urinary (tract) infections; K80.20 Calculus of gallbladder without cholecystitis without obstruction; Z98.890 Other specified postprocedural states
CPT/HCPCS: 36415; 51798; 80053; 85025; 99282

== ENCOUNTER 2018-07-19 13:18 | Outpatient (CLI) | payer OTHER ==
[2012-11-30 13:15] VITALS: TEMP 99.2
== END 2018-07-19 13:19 | disposition home or self-care (01) ==
LOC: RHC-LAB 13:18 → FCC-LAB 13:19
PROVIDERS: ATTEND Nurse Practitioner Family
DX: K80.20 Calculus of gallbladder without cholecystitis without obstruction (principal); R74.8 Abnormal levels of other serum enzymes; R17 Unspecified jaundice
CPT/HCPCS: 36415; 80076

== ENCOUNTER 2018-07-23 08:04 | Outpatient (CLI) ==
[2012-11-30 13:15] VITALS: TEMP 99.2
== END 2018-07-23 08:05 | disposition home or self-care (01) ==
LOC: RHC-LAB 08:04 → FCC-LAB 08:05
PROVIDERS: ATTEND Nurse Practitioner Family
DX: R30.0 Dysuria (principal)
CPT/HCPCS: 81001

== ENCOUNTER 2018-08-15 15:18 | Emergency (ER) | payer OTHER ==
[2018-08-15 15:23] VITALS: BP 133/78; TEMP 98.4; BMI 25.7
--- NOTE | 2018-08-15 16:14 | ED.PDOC ---
General ED Provider: Dr. STACEY OATES Chief Complaint: Wound Check Stated Complaint: wound healing Time Seen by Physician: 15:20 Mode of Arrival: Walk-In Information Source: Patient Exam Limitations: No limitations Primary Care Provider: AUDI CERON Nursing and Triage Documentation Reviewed and Agree: Yes Does patient meet sepsis criteria?: No System Inflammatory Response Syndrome: Not Applicable Sepsis Protocol: For patient's 13 years and over: Temp is 96.8 and below OR 101 and greater Pulse >90 BPM Resp >20/minute Acutely Altered Mental Status Are patient's symptoms suggestive of a new infection, such as: -Pneumonia -Skin, Soft Tissue -Endocarditis -UTI -Bone, Joint Infection -Implantable Device -Acute Abdominal Infection -Wound Infection -Meningitis -Blood Stream Catheter Infection -Unknown Skin Complaint Exam - Skin/Soft Tissue Complaint/Exam Onset/Duration: week Symptoms Are: Still present Timing: Constant Initial Severity: Mild Current Severity: Mild Character: Reports: Redness Aggravating: Reports: Cold Alleviating: Reports: Medications Associated Signs and Symptoms: Reports: Itching, Bruising, Tenderness Related Surgical History: Reports: None Recent Exposure to Others w/Similar Symptoms: No Skin Findings: Present: Erythema Joint Tenderness Present: No Differential Diagnoses: Lymphadenitis Review of Systems - Review Of Systems Constitutional: Reports: No symptoms Eyes: Reports: No symptoms Ears, Nose, Mouth, Throat: Reports: No symptoms Respiratory: Reports: No symptoms Cardiac: Reports: No symptoms GI: Reports: No symptoms : Reports: No symptoms Musculoskeletal: Reports: No symptoms Skin: Reports: No symptoms Neurological: Reports: No symptoms Endocrine: Reports: No symptoms Hematologic/Lymphatic: Reports: No symptoms All Other Systems: Reviewed and Negative Past Medical History - Past Medical History Previously Healthy: No Endocrine: Reports: None Cardiovascular: Reports: CHF Respiratory: Reports: COPD Hematological: Reports: None Gastrointestinal: Reports: None Genitourinary: Reports: UTI, Other (urinary retention) Neuro/Psych: Reports: Other (spinal stenosis) Musculoskeletal: Reports: Arthritis, Back Pain Cancer: Reports: None Other Pertinent Past Medical History: /uti,Back, Left Knee, Hernia Repair - Surgical History General Surgical History: Reports: Orthopedic (Back, Left Knee), Hernia Repair, Other (Hernia Repair) - Family History Family History: Reports: Unknown - Social History Smoking Status: Current some day smoker, Light tobacco smoker Hx Substance Use: No Alcohol Screening: Occasionally Physical Exam - Physical Exam Appearance: Well-appearing Ill-appearing: None Pain Distress: None Eyes: ERNESTO ENT: Ears normal Neck: Supple Respiratory: Airway patent Cardiovascular: RRR, Pulses normal GI/: Tender Musculoskeletal: Normal strength Skin: Warm Neurological: Sensation intact Psychiatric: Affect appropriate Critical Care Note - Critical Care Note Total Time (mins): 0 Course - Course Vital Signs: Temp Pulse Resp BP Pulse Ox 08/15/18 15:18 98.4 F 101 H 20 133/78 97 Departure - Departure Time of Disposition: 16:45 Disposition: HOME SELF-CARE Discharge Problem: Encounter for wound care Instructions: Wound Healing and Your Diet (ED) Condition: Stable Pt referred to PMD for follow-up: Yes IPMP verified?: No Allergies/Adverse Reactions: Allergies meloxicam [From Mobic] Allergy (Severe, Verified 08/15/18 15:23) Dizzy, skin crawl Patient already told drugstore tamsulosin HCl [From Flomax] Allergy (Severe, Verified 08/15/18 15:23) exessive sweating Penicillins Adverse Reaction (Verified 08/15/18 15:23) Hives Home Medications: Ambulatory Orders Albuterol Sulfate [Proventil Hfa] 2 puff IH QID #1 hfa.aer.ad 04/06/18 Disposition Discussed With: Patient
== END 2018-08-15 16:12 | disposition home or self-care (01) ==
LOC: ED 15:18
DX: T14.90XA Injury, unspecified, initial encounter (principal); F17.210 Nicotine dependence, cigarettes, uncomplicated
CPT/HCPCS: 99281

== ENCOUNTER 2018-09-10 10:24 | Outpatient (CLI) ==
[2012-11-30 13:15] VITALS: TEMP 99.2
== END 2018-09-10 10:25 | disposition home or self-care (01) ==
LOC: RHC-LAB 10:24 → FCC-LAB 10:25
PROVIDERS: ATTEND Nurse Practitioner Family
DX: J44.9 Chronic obstructive pulmonary disease, unspecified (principal); D72.828 Other elevated white blood cell count; R74.8 Abnormal levels of other serum enzymes
CPT/HCPCS: 36415; 80053; 85025

== ENCOUNTER 2018-09-17 08:00 | Outpatient (RCR) ==
[2012-11-30 13:15] VITALS: TEMP 99.2
--- NOTE | 2018-09-16 08:32 | RS.OPPTEV2 ---
Date of Note: 09/15/18 Visit #: 1 Number of visits approved by Insurance: n/a Date of Evaluation: 09/15/18 Payer Source: MEDICARE Surgery Performed?: No Treatment Diagnosis: Lumbar pain with radiculopathy History of Condition/Mechanism of Injury:: pt reports he has had back pain for years, reports he went through PT last year at a different facility without good result. 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 Functional Limitations: Sleep, Self Care, ADL's, Reaching, Pushing, Pulling, Lifting, Carrying, Sitting, Standing, Bending, Squatting, Ambulation, Community Access/Integration Current Subjective/complaints:: pt states his pain is effecting his ablility to perform normal daily routines as well as interrupting sleep. pt is poor historian, difficult to keep pt on task of PT. 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 Treatment Side (optional): N/A *Precautions: n/a Medical History Medical History: COPD, CHF, Arthritis (legs and hands) Surgical History: Lumbar Spine, Cholecystectomy (07/2018) Surgical History Comments:: left knee surgery, hernia repair Smoking Status: Current every day smoker Diagnostic Testing/Imaging:: no imaging available, called MD office to request if available Hx Home Medications: will bring list Patient's Goals: decrease back pain Pain Assessment - Pain Description Pain Location: lumbar spine radiating into BLE especially in upper thighs Pain Description: Sharp, Aching Current Pain Intensity: 8 Worst Pain Intensity: 10 Other Comments regarding Pain:: pain increases with standing, lying supine, etc Functional Outcome Measure Oswestry LBP: 14 - G Codes & Severity Modifier G Codes & Modifier: n/a Source of G Code score: n/a Observation - Observation Inspection: Difficult to assess unable to lie supine longer than 1min due to pain Posture: Forward Head, Rounded Shoulders, Increased Thoracic Kyphosis, Decreased Lumbar Lordosis Handedness: Right Gait - Gait Pattern General Gait Pattern Observation: Crouched Gait, Decrease Stride Lngth (R), Decrease Stride Lngth (L) Gait Comments: pt amb without AD with significantly flexed posture, decreased step length General Range of Motion: BUE WFL's. BLE decreased hip ext, decreased knee ext Muscle Strength: BUE 4+/5. BLE hip flex 4-/5, ext 3-/5, knee flex 4-/5, ext 3-/ 5, ankle 4/5 - ROM Lumbar Flexion: Hand reach to Mid-Thighs Sidebending to Left: Reach to Mid-thigh Sidebending to Right: Reach to Mid-thigh Lumbar Spine ROM Limitations: Soft Tissue Tightness, Muscle Weakness, Pain - Strength Trunk Extension: 4- Good- Trunk Flexion: 4 Good Trunk Lateral Flexion: 4- Good- Trunk Rotation: 4- Good- - Special Tests ART Test: Positive Left, Positive Right SLR Test: Positive Left, Positive Right SI Joint Compression: Positive (difficult to assess due to pt mental status.) Palpation Palpation Findings: Tenderness, Muscle Guarding Comments:: muscle guarding, tenderness to palpation lumbar/sacral area. Sensation - Sensation Right Upper Extremity: Intact/Normal Left Upper Extremity: Intact/Normal Right Lower Extremity: Impaired Left Lower Extremity: Impaired Comments: pt c/o feeling like something is crawling on his legs Balance - Sitting Balance Static Sitting Balance: Good Dynamic Sitting Balance: Good - Standing Balance Static Standing Balance: Fair Dynamic Standing Balance: Fair - Heat/Cryotherapy Treatment: Hot Pack Comments:: lumbar Interventions - Exercise/Activities/Manual Therapy Exercises/Activities: pt unable to tolerate ex this date lying supine due to pain. Performed isometric hip add and resisted hip flex sitting up in chair Manual Therapy: NA HOME EXERCISE PROGRAM: pt given written HEP including: knee to chest, lumbar rotation, isometric hip add, resisted hip flex - Charges Timed Code Treatment Minutes: 49 Total Treatment Time: 59 Procedures billed for this date of service:: eval low, hot pack EVALUATION COMPLEXITY LEVEL EVALUATION COMPLEXITY LEVEL: HISTORY: Low, EXAM OF BODY SYSTEMS: Medium, CLINICAL PRESENTATION: Medium, CLINICAL DECISION MAKING: Low Assessment Assessment: pt presents with low back pain radiating into BLE with increased muscle tightness, poor posture, limited lumbar ROM. Difficult to fully assess due to cognitive deficits. Feel pt may benefit from skilled PT for therex for gentle stretching, strengthening, modalities to decrease pain. Patient Education: Home Exercise Program, Education of Plan of Care Rehab Potential: Fair Short Term Goals Goal #1: pt independent with initial HEP Goal to be met by: 10/01/18 Goal #2: Improved lumbar ROM Goal to be met by: 10/01/18 Goal #3: Patient able to stand with erect posture x 2 mins w less pain Goal to be met by: 10/01/18 Goal #4: pt rate pain < 7/10 Goal to be met by: 10/01/18 Custodial Goals Goal #1: Patient able to perform normal daily activities with minimal LBP Goal to be met by: 10/15/18 Goal #2: Improve Oswestry LBP scale to 20 Goal to be met by: 10/15/18 Goal #3: Improved hamstring flexibility to WFL's Goal to be met by: 10/15/18 Goal #4: pt with no reports of radicular symptoms in BLE Goal to be met by: 10/15/18 Plan - Treatment to be Provided Procedures: Therapeutic Exercises, Therapeutic Activity, Manual Therapy, Massage , Patient Education Modalities: Electrical Stimulation, Ultrasound/Phonophoresis, Cryotherapy, Hot Packs - Treatment Plan Frequency: 2-3x a week Duration: 4 weeks Dates of Custodial Goals: 10/15/18 Expiration date of current Insurance Approval:: n/a - Treatment Code (1) Lumbar back pain with radiculopathy affecting lower extremity Code(s): M54.16 - RADICULOPATHY, LUMBAR REGION (2) Muscle tightness Code(s): M62.89 - OTHER SPECIFIED DISORDERS OF MUSCLE (3) Muscle weakness Code(s): M62.81 - MUSCLE WEAKNESS (GENERALIZED)
--- NOTE | 2018-09-17 08:58 | RS.OPPTDN ---
Subjective Date of Note: 09/17/18 Visit #: 2 Number of visits approved by Insurance: na Date of Evaluation: 09/15/18 Payer Source: MEDICARE Treatment Diagnosis: Lumbar pain with radiculopathy Current Subjective/complaints:: Patient reports his back pain is elevated this AM,but usually lessens after he has been up and moving for a couple of hours, then elevates later in the day as he fatigues.He ambulates into the clinic with flexed posture. *Precautions: n/a Pain Assessment - Pain Description Pain Location: lumbar Pain Description: Throbbing, Aching Current Pain Intensity: 8 Other Comments regarding Pain:: feels better after heat and US - Treatment Modality: Ultrasound Parameters/Method Applied: 10 mins. @ 1.5 w/cm2 ,cont. mode to lumbar region. - Heat/Cryotherapy Treatment: Hot Pack (20 mins. prior to US) Interventions - Exercise/Activities/Manual Therapy Exercises/Activities: 20 mins. of shortened range SKTC,DKTC,lower trunk rotation.Attempted pelvic tiltsand hams. stretch ,but stopped due to pain. Total minutes of Exercise: 20 Manual Therapy: NA Total minutes of Manual Therapy: 0 HOME EXERCISE PROGRAM: pt given written HEP including: knee to chest, lumbar rotation, isometric hip add, resisted hip flex - Charges Timed Code Treatment Minutes: 30 Total Treatment Time: 50 Procedures billed for this date of service:: hp,US,ex Assessment: Patient is very guarded and resistant to exercises due to pain , needs frequent cues to relax.He reports relief after modalities at rest ,but returns with returning to sitting .He exits clinic with flexed posture. Patient Education: Education of diagnosis, Body/Joint mechanics, Home Exercise Program, Home Safety, Activity Modification, Education of Plan of Care Patient demonstrates compliance with HEP?: Yes Short Term Goals Goal #1: pt independent with initial HEP Goal to be met by: 10/01/18 Progress towards Goal:: Progressing Goal #2: Improved lumbar ROM Goal to be met by: 10/01/18 Goal #3: Patient able to stand with erect posture x 2 mins w less pain Goal to be met by: 10/01/18 Goal #4: pt rate pain < 7/10 Goal to be met by: 10/01/18 Snf Goals Goal #1: Patient able to perform normal daily activities with minimal LBP Goal to be met by: 10/15/18 Goal #2: Improve Oswestry LBP scale to 20 Goal to be met by: 10/15/18 Goal #3: Improved hamstring flexibility to WFL's Goal to be met by: 10/15/18 Goal #4: pt with no reports of radicular symptoms in BLE Goal to be met by: 10/15/18 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 skilled PT to reduce /eliminate lumbar pain and radiculopathy.
--- NOTE | 2018-09-24 09:00 | RS.CXNS ---
Date of scheduled appointment: 09/20/18 Type: No Show
--- NOTE | 2018-09-24 09:01 | RS.CXNS ---
Date of scheduled appointment: 09/24/18 Type: No Show
== END 2018-10-05 23:59 ==
PROVIDERS: ATTEND Nurse Practitioner Family
DX: M54.9 Dorsalgia, unspecified (principal); M79.604 Pain in right leg; M79.605 Pain in left leg; G89.29 Other chronic pain; M51.36 Other intervertebral disc degeneration, lumbar region; M54.16 Radiculopathy, lumbar region; M62.89 Other specified disorders of muscle; M62.81 Muscle weakness (generalized)

== ENCOUNTER 2018-10-01 09:39 | Outpatient (CLI) ==
[2012-11-30 13:15] VITALS: TEMP 99.2
== END 2018-10-01 09:40 | disposition home or self-care (01) ==
LOC: RHC-LAB 09:39 → FCC-LAB 09:40
PROVIDERS: ATTEND Nurse Practitioner Family
DX: E03.9 Hypothyroidism, unspecified (principal); B35.1 Tinea unguium
CPT/HCPCS: 36415; 84443; 87101

== ENCOUNTER 2018-10-04 18:52 | Emergency (ER) | payer OTHER ==
[2018-10-04 18:57] VITALS: BP 125/70; TEMP 98.1; BMI 26.6
--- NOTE | 2018-10-04 19:11 | ED.PDOC ---
General ED Provider: Dr. STACEY OATES Chief Complaint: Knee Pain/Injury Stated Complaint: 68 y old presenting with righ lower extremity pain.Areas involved are r hip but he focuses more on re knede too ahere an effusion can be palpated.No acute injury.Changes appear chronic,exacerbated. Time Seen by Physician: 19:05 Mode of Arrival: Walk-In Information Source: Patient Exam Limitations: No limitations Primary Care Provider: AUDI CERON Nursing and Triage Documentation Reviewed and Agree: Yes Does patient meet sepsis criteria?: No System Inflammatory Response Syndrome: Not Applicable Sepsis Protocol: For patient's 13 years and over: Temp is 96.8 and below OR 101 and greater Pulse >90 BPM Resp >20/minute Acutely Altered Mental Status Are patient's symptoms suggestive of a new infection, such as: -Pneumonia -Skin, Soft Tissue -Endocarditis -UTI -Bone, Joint Infection -Implantable Device -Acute Abdominal Infection -Wound Infection -Meningitis -Blood Stream Catheter Infection -Unknown Musculoskeletal Complaint Exam - Lower Extremity Complaint/Exam Location of Pain: Reports: Right, Knee, Hip Onset/Duration: appeares chronic Symptoms Are: Still present Onset of Pain: Reports: Days, Prior to arrival Initial Severity: Moderate Current Severity: Mild Location: Reports: Discrete Character: Reports: Aching Alleviating: Reports: Rest Aggravating: Reports: Movement Able to Bear Weight: No (uses cane for ambulation) Associated Signs and Symptoms: Reports: Swelling Related History: Reports: Similar episode DVT Risk Factors: Reports: Smoking, Recent bedrest Septic Arthritis Risk Factors: Reports: Preexisting joint disease Related Surgical History: Reports: None Lower Extremity Findings: Present: Swelling, Tenderness Differential Diagnoses: Arthritis, Contusion, Sciatica, Strain, Sprain, Tenosynovitis Review of Systems - Review Of Systems Constitutional: Reports: Malaise, Weakness Eyes: Reports: No symptoms Ears, Nose, Mouth, Throat: Reports: No symptoms Respiratory: Reports: No symptoms Cardiac: Reports: No symptoms GI: Reports: No symptoms : Reports: No symptoms Musculoskeletal: Reports: Back pain, Joint pain, Muscle stiffness Skin: Reports: No symptoms Neurological: Reports: No symptoms Endocrine: Reports: No symptoms Hematologic/Lymphatic: Reports: No symptoms All Other Systems: Reviewed and Negative Past Medical History - Past Medical History Previously Healthy: No Endocrine: Reports: None Cardiovascular: Reports: CHF Respiratory: Reports: COPD Hematological: Reports: None Gastrointestinal: Reports: None Genitourinary: Reports: UTI, Other (urinary retention) Neuro/Psych: Reports: Other (spinal stenosis) Musculoskeletal: Reports: Arthritis, Back Pain Cancer: Reports: None Other Pertinent Past Medical History: /uti,Back, Left Knee, Hernia Repair - Surgical History General Surgical History: Reports: Orthopedic (Back, Left Knee), Hernia Repair, Other (Hernia Repair) - Family History Family History: Reports: Unknown - Social History Smoking Status: Current some day smoker, Light tobacco smoker Hx Substance Use: No Alcohol Screening: Occasionally - Immunizations Tetanus Shot up to Date: No Physical Exam - Physical Exam Appearance: Thin Ill-appearing: Moderate Pain Distress: Mild Eyes: ERNESTO ENT: Ears normal Neck: Supple Respiratory: Airway patent, Breath sounds clear Cardiovascular: RRR, Pulses normal GI/: Soft, Nontender Musculoskeletal: Limited ROM, Limited strength Skin: Warm, Dry Neurological: Sensation intact Psychiatric: Anxious Interpretation - Radiology Interpretation Radiology Interpretation By: Radiologist Radiology Results: No acute changes Xray Comments: right knee x ray Radiology Interpretation By: Radiologist Radiology Results: No acute changes Exam Interpreted: Other Critical Care Note - Critical Care Note Total Time (mins): 0 Course - Course Hematology/Chemistry: 10/04/18 20:24 Orders, Labs, Meds: Lab Review 10/04/18 10/04/18 20:24 21:15 WBC 8.11 RBC 5.10 Hgb 15.3 Hct 46.8 MCV 91.8 MCH 30.0 MCHC 32.7 RDW Coeff of Jessie 13.4 Plt Count 287 Immature Gran % (Auto) 0.2 Neut % (Auto) 69.8 Lymph % (Auto) 15.9 [place] % (Auto) 12.3 H Eos % (Auto) 1.2 Baso % (Auto) 0.6 Immature Gran # (Auto) 0.0 Neut # (Auto) 5.7 Lymph # (Auto) 1.3 [place] # (Auto) 1.0 Eos # (Auto) 0.1 Baso # (Auto) 0.1 Urine Color Yellow Urine Clarity Clear Urine pH 5.5 Ur Specific [place] 1.010 Urine Protein Negative Urine Glucose (UA) Negative Urine Ketones Negative Urine Blood Negative Urine Nitrite Negative Urine Bilirubin Negative Urine Urobilinogen 0.2 Ur Leukocyte Esterase Trace Urine Microscopic WBC 2-5 Ur Squamous Epith Cells 0-2 Hyaline Casts 0-2 Orders Category Date Time Status CBC W/ AUTO DIFF Stat LAB 10/04/18 20:24 Completed URINALYSIS C & S IF INDICATED Stat LAB 10/04/18 21:15 Completed Ketorolac Tromethamine [Toradol] MEDS 10/04/18 19:17 Discontinued 30 mg IM ONCE STA HIP, RIGHT 2 VIEWS Stat RADS 10/04/18 19:15 Completed KNEE, RIGHT 4 VIEWS Stat RADS 10/04/18 19:15 Completed Medications Discontinued Medications Generic Name Dose Route Start Last Admin Trade Name Eric PRN Reason Stop Dose Admin Ketorolac Tromethamine 30 mg 10/04/18 19:17 10/04/18 19:42 Toradol IM 10/04/18 19:18 30 mg ONCE STA Administration Vital Signs: Temp Pulse Resp BP Pulse Ox 10/04/18 18:55 98.1 F 88 18 125/70 97 Departure - Departure Time of Disposition: 21:45 Disposition: HOME SELF-CARE Discharge Problem: Arthralgia Instructions: Arthralgia (ED) Condition: Good Pt referred to PMD for follow-up: Yes IPMP verified?: No Additional Instructions: Use Diclofenac/Voltaren ont.;Acute Prednison 40 mg qd x 3 days.Continue artrhritis meds from PCP.[place] 5/325 1 tab q 6-9 hours prn breakthrough pain #6 tab/. Allergies/Adverse Reactions: Allergies meloxicam [From Mobic] Allergy (Severe, Verified 10/04/18 18:57) Dizzy, skin crawl Patient already told drugstore tamsulosin HCl [From Flomax] Allergy (Severe, Verified 10/04/18 18:57) exessive sweating Penicillins Adverse Reaction (Verified 10/04/18 18:57) Hives Home Medications: Ambulatory Orders Albuterol Sulfate [Proventil Hfa] 2 puff IH QID #1 [email or web address] 04/06/18 Disposition Discussed With: Patient, Family
[2018-10-04] MEDS ORDERED: TORADOL IM STA (19:17)
--- NOTE | 2018-10-04 21:01 | DI ---
Exam: Two-view right hip. Date: 10/04/2018. Comparison: None. HISTORY: Pain with decreased range of motion. FINDINGS: The soft tissues are within normal limits. There is mild osteopenia. There is mild cepha lomedial migration of the femoral head but no flattening remodeling of the articular surfaces. No fr acture or dislocation is identified. Impression: No acute osseous abnormality. Mild degenerative changes in the right hip.
--- NOTE | 2018-10-04 21:01 | DI ---
Exam: Four view right knee. Date: 10/04/2018. Comparison: 02/07/2015. HISTORY: Pain with decreased range of motion. FINDINGS: The soft tissues are within normal limits. The mineralization is normal. There is no eff usion. Degenerative enthesis is present on the superior pole of the patella. There is mild loss of joint space with degenerative spurring in the patellofemoral compartment. There is minimal osteophyt ic spurring in the medial and lateral compartments. No fracture or dislocation is observed. Impression: No acute osseous abnormality. Mild tricompartmental degenerative changes in the right k nee.
== END 2018-10-04 21:55 | disposition home or self-care (01) ==
LOC: ED 18:52
DX: M25.561 Pain in right knee (principal); M25.551 Pain in right hip; M25.461 Effusion, right knee; R53.1 Weakness; M54.9 Dorsalgia, unspecified
CPT/HCPCS: 36415; 81001; 85025; 96372; 99283

== ENCOUNTER 2018-10-13 14:02 | Outpatient (CLI) ==
[2012-11-30 13:15] VITALS: TEMP 99.2
== END 2018-10-13 14:03 | disposition home or self-care (01) ==
LOC: RHC-LAB 14:02 → FCC-LAB 14:03
PROVIDERS: ATTEND Nurse Practitioner Family
DX: R23.8 Other skin changes (principal); Z51.81 Encounter for therapeutic drug level monitoring; Z79.899 Other long term (current) drug therapy
CPT/HCPCS: 36415; 80053; 85025; 85610

== ENCOUNTER 2018-10-15 09:27 | Outpatient (CLI) ==
[2012-11-30 13:15] VITALS: TEMP 99.2
--- NOTE | 2018-10-15 10:42 | US ---
EXAM: Right lower extremity venous Doppler History: Right lower extremity pain, chest pain. Technique: Multiple sonographic images through the right lower extremity were obtained. Color duple x Doppler was used to interrogate vascular flow. Findings: The right common femoral, greater saphenous, profunda, superficial femoral, popliteal, per ewing, posterior tibial and anterior tibial veins demonstrate spontaneous flow with normal compressio n and normal augmentation. Impression: No sonographic evidence for deep venous thrombosis
== END 2018-10-15 09:28 | disposition home or self-care (01) ==
LOC: RAD 09:27
PROVIDERS: ATTEND Nurse Practitioner Family
DX: R23.8 Other skin changes (principal); M79.604 Pain in right leg

== ENCOUNTER 2018-10-20 22:10 | Emergency (ER) ==
[2018-10-20] MEDS: ZOFRAN 4 MG/2 ML IVP STA (23:10)
--- NOTE | 2018-10-21 00:57 | ED.PDOC ---
General ED Provider: Dr. DILLAN SCANLON Chief Complaint: Abdominal Pain Stated Complaint: Right upper quadrant pain x 3 hours. History of Cholecystectomy 2 months ago. Time Seen by Physician: 22:15 Exam Limitations: No limitations Primary Care Provider: AUDI CERON Nursing and Triage Documentation Reviewed and Agree: Yes Does patient meet sepsis criteria?: No System Inflammatory Response Syndrome: Not Applicable Sepsis Protocol: For patient's 13 years and over: Temp is 96.8 and below OR 101 and greater Pulse >90 BPM Resp >20/minute Acutely Altered Mental Status Are patient's symptoms suggestive of a new infection, such as: -Pneumonia -Skin, Soft Tissue -Endocarditis -UTI -Bone, Joint Infection -Implantable Device -Acute Abdominal Infection -Wound Infection -Meningitis -Blood Stream Catheter Infection -Unknown Review of Systems - Review Of Systems Constitutional: Reports: No symptoms Eyes: Reports: No symptoms Ears, Nose, Mouth, Throat: Reports: No symptoms Respiratory: Reports: No symptoms Cardiac: Reports: No symptoms GI: Reports: Abdominal pain : Reports: No symptoms Musculoskeletal: Reports: No symptoms Skin: Reports: No symptoms Neurological: Reports: No symptoms Endocrine: Reports: No symptoms Hematologic/Lymphatic: Reports: No symptoms All Other Systems: Reviewed and Negative Past Medical History - Past Medical History Previously Healthy: No Endocrine: Reports: None Cardiovascular: Reports: CHF Respiratory: Reports: COPD Hematological: Reports: None Gastrointestinal: Reports: None Genitourinary: Reports: UTI, Other (urinary retention) Neuro/Psych: Reports: Other (spinal stenosis) Musculoskeletal: Reports: Arthritis, Back Pain Cancer: Reports: None Other Pertinent Past Medical History: /uti,Back, Left Knee, Hernia Repair - Surgical History General Surgical History: Reports: Orthopedic (Back, Left Knee), Hernia Repair, Other (Hernia Repair) - Family History Family History: Reports: Unknown - Social History Smoking Status: Current some day smoker, Light tobacco smoker Hx Substance Use: No Alcohol Screening: Occasionally Physical Exam - Physical Exam Appearance: Ill-appearing Ill-appearing: Moderate Pain Distress: Moderate Eyes: ERNESTO, EOMI, Conjunctiva clear ENT: Ears normal, Nose normal, Oropharynx normal Neck: Supple Respiratory: Airway patent, Breath sounds clear, Breath sounds equal, Respirations nonlabored Cardiovascular: RRR, Pulses normal, No rub, No murmur GI/: Soft, Nontender, No masses, Bowel sounds normal, No Organomegaly Musculoskeletal: Normal strength, ROM intact Skin: Warm, Dry Neurological: Alert, Oriented Psychiatric: Anxious Interpretation - Radiology Interpretation Radiology Interpretation By: Radiologist Radiology Results: No acute changes ([place] Diverticular without diverticulosis) Exam Interpreted: CT Scan Re-Evaluation - Re-Evaluation Time of Re-Evaluation: 00:10 Status: Improved Vital Signs Stable: Yes Critical Care Note - Critical Care Note Total Time (mins): 0 Course - Course Hematology/Chemistry: 10/21/18 05:23 10/21/18 05:18 Orders, Labs, Meds: Lab Review 10/21/18 10/21/18 10/21/18 00:00 05:18 05:23 WBC 8.38 RBC 5.05 Hgb 15.3 Hct 47.1 MCV 93.3 MCH 30.3 MCHC 32.5 RDW Coeff of Jessie 14.8 Plt Count 293 Immature Gran % (Auto) 0.4 Neut % (Auto) 61.8 Lymph % (Auto) 23.4 [place] % (Auto) 11.3 H Eos % (Auto) 2.3 Baso % (Auto) 0.8 Immature Gran # (Auto) 0.0 Neut # (Auto) 5.2 Lymph # (Auto) 2.0 [place] # (Auto) 1.0 Eos # (Auto) 0.2 Baso # (Auto) 0.1 Sodium 142.5 Potassium 3.85 Chloride 105.8 Carbon Dioxide 29.9 Anion Gap 10.65 BUN 10.7 Creatinine 0.57 L Estimated GFR (MDRD) 141.00 BUN/Creatinine Ratio 18.77 Glucose 87.1 Calcium 8.91 Total Bilirubin 1.29 AST 78.3 H ALT 28.7 Alkaline Phosphatase 166.7 H Total Protein 6.56 Albumin 4.00 Globulin 2.56 Albumin/Globulin Ratio 1.56 Amylase 67.5 Lipase 105.7 Urine Color Yellow Urine Clarity Clear Urine pH 7.0 Ur Specific [place] 1.020 Urine Protein Negative Urine Glucose (UA) Negative Urine Ketones Negative Urine Blood Negative Urine Nitrite Negative Urine Bilirubin Negative Urine Urobilinogen 1.0 Ur Leukocyte Esterase Negative Orders Category Date Time Status AMYLASE Stat LAB 10/21/18 05:18 Completed CBC W/ AUTO DIFF Stat LAB 10/21/18 05:23 Completed COMPREHENSIVE METABOLIC PANEL Stat LAB 10/21/18 05:18 Completed LIPASE Stat LAB 10/21/18 05:18 Completed UA [URINALYSIS C & S IF INDICATED] Stat LAB 10/21/18 00:00 Completed Ondansetron HCl/Pf [Zofran 4 mg/2 ml] MEDS 10/21/18 01:21 Discontinued 4 mg IVP ONCE STA CT ABDOMEN/PELVIS WO CONTRAST Stat RADS 10/20/18 22:30 Ordered Medications Discontinued Medications Generic Name Dose Route Start Last Admin Trade Name Eric PRN Reason Stop Dose Admin Ondansetron HCl 4 mg 10/21/18 01:21 10/20/18 23:10 Zofran 4 Mg/2 Ml IVP 10/21/18 01:22 4 mg ONCE STA Administration Vital Signs: Temp Pulse Resp BP Pulse Ox 10/20/18 22:13 97.2 F L 90 20 136/77 95 Departure - Departure Time of Disposition: 00:11 Disposition: HOME SELF-CARE Discharge Problem: Abdominal pain Constipation Qualifiers: Constipation type: other constipation type Qualified Code(s): K59.09 - Other constipation Instructions: Constipation (ED), Abdominal Pain (ED) Condition: Stable Pt referred to PMD for follow-up: Yes IPMP verified?: No Additional Instructions: Take over the counter Laxatives and Push fluids. Allergies/Adverse Reactions: Allergies meloxicam [From Mobic] Allergy (Severe, Verified 10/04/18 18:57) Dizzy, skin crawl Patient already told drugstore tamsulosin HCl [From Flomax] Allergy (Severe, Verified 10/04/18 18:57) exessive sweating Penicillins Adverse Reaction (Verified 10/04/18 18:57) Hives Home Medications: Ambulatory Orders Albuterol Sulfate [Proventil Hfa] 2 puff IH QID #1 [email or web address] 04/06/18 Disposition Discussed With: Patient, Family
[2018-10-21 01:01] VITALS: BP 136/77; TEMP 97.2; BMI 27.6
--- NOTE | 2018-10-25 09:56 | CT ---
PRELIMINARY EXAM: CT scan abdomen pelvis without contrast HISTORY: Right upper quadrant pain COMPARISON: CT scan pelvis 07/03/2018 FINDINGS: Continue axial images were obtained through abdomen and pelvis without contrast utilizing 3-mm collimation. Sagittal and coronal reconstruction were imaged and reviewed. Lung base emphysema tous changes with bronchiectasis with associated bronchial wall thickening. There is a small hiatal hernia. There has been prior cholecystectomy. There is choledocholithiasis measuring 1.4 cm which a ppears relatively stable. There is a duodenal diverticulum. The liver pancreas spleen and adrenal gl ands have normal unenhanced CT appearance. Atherosclerotic changes are seen involving the aorta with out aneurysm formation. Simple cyst interpolar region left kidney. The right kidney is unremarkable . The prostate is enlarged the rectum is mildly distended with stool. Diverticulosis without divert iculitis is seen with descending and rectosigmoid colon. There is a fat-containing umbilical hernia. Bladder diverticulum is seen posteriorly on the left. Prostate gland enlarged. There is a fat-con taining right inguinal hernia. Bone windows reveals no evidence of lytic or blastic lesions. IMPRESSION: Status post cholecystectomy with relatively stable choledocholithiasis. Duodenal diverticulum. Diverticulosis without diverticulitis. Prostatic enlargement
== END 2018-10-21 00:10 | disposition home or self-care (01) ==
LOC: ED 22:10
DX: R10.11 Right upper quadrant pain (principal); K59.00 Constipation, unspecified; Z72.0 Tobacco use
CPT/HCPCS: 36415; 80053; 81001; 82150; 83690; 85025; 96361; 96374; 99283

== ENCOUNTER 2018-10-21 01:55 | Outpatient (CLI) ==
[2012-11-30 13:15] VITALS: TEMP 99.2
[2018-10-21 01:01] VITALS: BMI 27.6
== END 2018-10-21 02:13 | disposition short-term general hospital (02) ==
LOC: AMBL 01:55
PROVIDERS: ATTEND Internal Medicine Geriatric Medicine
DX: R10.9 Unspecified abdominal pain (principal); R11.2 Nausea with vomiting, unspecified

== ENCOUNTER 2019-01-30 02:50 | Outpatient (CLI) ==
[2012-11-30 13:15] VITALS: TEMP 99.2
== END 2019-01-30 03:06 | disposition short-term general hospital (02) ==
LOC: AMBL 02:50
PROVIDERS: ATTEND Internal Medicine Geriatric Medicine
DX: L76.82 Other postprocedural complications of skin and subcutaneous tissue (principal)